=== PATIENT | female | born 1960 | race Caucasian/White ===

== ENCOUNTER → 2017-10-03 13:58 | Outpatient (CLI) | payer OTHER, SELFPAY ==
--- NOTE | 2017-10-03 13:59 | RAD_ITS ---
STUDY: X-RAY - LEFT HAND REASON FOR EXAM: Female, 56 years old. Rheumatoid arthritis. TECHNIQUE: 3 view(s) of the hand. COMPARISON: None. FINDINGS: Normal radiocarpal articulation. Normal distal radioulnar joint. Ulnar styloid avulsion fracture which is probably old. Normal visualized carpal bones. Normal carpal articulations Normal carpometacarpal articulation of the thumb. Normal second through fifth carpometacarpal joints. Normal metacarpi. Normal metacarpophalangeal joint of the thumb. Normal interphalangeal joint of the thumb. Normal proximal and distal phalanges of the thumb. Normal metacarpophalangeal joints of the second through fifth fingers. Normal proximal and distal interphalangeal joints of the second through fifth fingers. Normal phalanges of the second through fifth fingers. The soft tissue structures are unremarkable. No erosions. RAD/Hand Min 3 Views IMPRESSION: No findings to suggest an inflammatory arthritis. Electronically Signed: Diogenes Rankin MD at 5:03 EDT , Service support ,
--- NOTE | 2017-10-03 13:59 | RAD_ITS ---
STUDY: X-RAY - PELVIS REASON FOR EXAM: Female, 56 years old. Rheumatoid arthritis. TECHNIQUE: One view of the pelvis was obtained. COMPARISON: None. FINDINGS: There is a non-specific bowel gas pattern. Normal visualized soft tissue structures. Normal bilateral iliac wings, sacroiliac joints and visualized sacrum. Normal visualized bilateral superior and inferior pubic rami. Normal pubic symphysis. Normal ischial tuberosities. Normal visualized right femoral head. Normal right acetabulum. Normal right hip joint. No erosions. Normal visualized left femoral head. Normal left acetabulum. Normal left hip joint. No erosions. RAD/Pelvis 1 or 2 Views IMPRESSION: Normal x-ray examination of the pelvis. Electronically Signed: Diogenes Rankin MD at 7:51 EDT , Service support ,
--- NOTE | 2017-10-03 13:59 | RAD_ITS ---
STUDY: X-RAY - LEFT HAND REASON FOR EXAM: Female, 56 years old. Rheumatoid arthritis. TECHNIQUE: 3 view(s) of the hand. COMPARISON: None. FINDINGS: Normal radiocarpal articulation. Normal distal radioulnar joint. Normal visualized carpal bones. Normal carpal articulations Normal carpometacarpal articulation of the thumb. Normal second through fifth carpometacarpal joints. Normal metacarpi. Normal metacarpophalangeal joint of the thumb. Normal interphalangeal joint of the thumb. Normal proximal and distal phalanges of the thumb. Normal metacarpophalangeal joints of the second through fifth fingers. Normal proximal and distal interphalangeal joints of the second through fifth fingers. Normal phalanges of the second through fifth fingers. The soft tissue structures are unremarkable. No erosions. RAD/Hand Min 3 Views IMPRESSION: Normal x-ray examination of the hand. Electronically Signed: Diogenes Rankin MD at 7:25 EDT , Service support ,
[2017-10-03 15:33] LABS: Absolute Lymphocyte Count 1.58 X10^3/ul (0.83-4.51); Absolute Neutrophil Count 3.4 X10^3/uL (2.0-7.7); Basophil# 0.03 X10^3/uL; Basophil% 0.5 % (0-1); Eosinophil# 0.21 X10^3/uL; Eosinophils% 3.6 % (0-5); Hematocrit 39.1 % (37-47); Hemoglobin 13.2 g/dl (12.0-15.0); Lymphocyte # 1.58 X10^3/ul (4.0); Lymphocyte % 26.8 % (19-41); Mean Corp Hgb Conc 33.8 g/gl (32-36); Mean Corpuscular Hgb 31.4 pg (27.0-32.0); Mean Corpuscular Volume 92.9 fL (81-99); Mean Platelet Vol. 10.5 fl (6.2-12.0); Monocyte# 0.71 X10^3/uL; Monocyte% 12.1 % (0-10); Neutrophil # 3.35 X10^3/uL (2.7-7.7); Neutrophil % 56.8 % (47-70); Platelet Count 236 K/mm3 (150-450); RBC Distribution Width CV 12.7 % (11.6-14.6); RBC Distribution Width SD 42.4 fl (35.1-43.9); Red Blood Count 4.21 M/mm3 (4.2-5.4); White Blood Count 5.9 K/mm3 (4.4-11.0)
[2017-10-03 15:41] LABS: ALB/GLOB Ratio 1.1 RATIO (0.9-2.4); AST(SGOT) 20 U/L (15-37); Alanine Aminotransfer ALT/SGPT 26 U/L (13-56); Albumin, Serum 4.3 g/dL (3.2-5.0); Alkaline Phosphatase 118 U/L (45-117); Anion Gap 8 (5-15); BUN 15 mg/dL (7-18); BUN/Creat Ratio 18.9 RATIO (10-20); CRP 2.97 mg/L (0.0-3.0); Calcium,Total 9.2 mg/dL (8.5-10.1); Chloride 103 mmol/L (98-107); Creatinine, Serum 0.79 mg/dL (0.55-1.02); EST Glomerular Filtration Rate 80 mL/min (>60); Est Glom Filt Rate - Afr Amer 97 mL/min (>60); Glucose 83 mg/dL (74-106); POSITIVE COUNT NO; POSITIVE DIFFERENTIAL NO; POSITIVE MORPHOLOGY NO; Potassium 3.6 mmol/L (3.5-5.1); Protein, Total 8.3 g/dL (6.4-8.2); Sodium Level 139 mmol/L (136-145)
[2017-10-03 15:57] LABS: Erythrocyte Sedimentation Rate 13 mm/hr (0-30)
[2017-10-06 12:50] LABS: ANTINUCLEAR ANTIBODIES DIRECT Negative (Negative)
[2017-10-12 11:45] LABS: CCP IgG Antibodies 15 units (0-19); HEPATITIS B SURFACE AG Negative (Negative); HLA B27 Negative (.); Hep B Surface Antibodies Reactive (.); Hep C Antibodies <0.1 s/co ratio (0.0-0.9)
== END ==
PROVIDERS: Visit Provider Internal Medicine Rheumatology
DX: M05.79 Rheumatoid arthritis with rheumatoid factor of multiple sites without organ or systems involvement (principal); M15.9 Polyosteoarthritis, unspecified; E03.9 Hypothyroidism, unspecified
CPT/HCPCS: 36415; 72170; 73130; 80053; 81374; 85025; 85652; 86038; 86140; 86200; 86431; 86706; 86803; 87340

== ENCOUNTER → 2017-12-01 10:39 | Outpatient (CLI) | payer OTHER, SELFPAY ==
--- NOTE | 2017-12-01 10:49 | EKG12_ITS ---
Test Reason : PREOP Blood Pressure : / mmHG Vent. Rate : 048 BPM Atrial Rate : 048 BPM P-R Int : 168 ms QRS Dur : 074 ms QT Int : 450 ms P-R-T Axes : 041 026 043 degrees QTc Int : 402 ms Marked sinus bradycardia Abnormal ECG Confirmed by SUNITA FRANK, ELLEN ([id number]), mapping editor EBONY AYOUB ([id number] on 12/02/2017 1:49:42 PM Referred By: Ronen Baker Confirmed By:ELLEN DORSEY MD
== END ==
PROVIDERS: Visit Provider Physician Assistant
DX: Z01.810 Encounter for preprocedural cardiovascular examination (principal)
CPT/HCPCS: 93005

== ENCOUNTER → 2017-12-02 06:43 | Outpatient (CLI) | payer OTHER, SELFPAY ==
[2017-12-02 07:41] LABS: Hematocrit 39.9 % (37-47); Hemoglobin 13.2 g/dl (12.0-15.0); Mean Corp Hgb Conc 33.1 g/gl (32-36); Mean Corpuscular Hgb 30.8 pg (27.0-32.0); Mean Corpuscular Volume 93.2 fL (81-99); Mean Platelet Vol. 9.7 fl (6.2-12.0); Platelet Count 240 K/mm3 (150-450); RBC Distribution Width CV 13.2 % (11.6-14.6); RBC Distribution Width SD 43.8 fl (35.1-43.9); Red Blood Count 4.28 M/mm3 (4.2-5.4); White Blood Count 4.9 K/mm3 (4.4-11.0)
[2017-12-02 07:59] LABS: Hemoglobin A1c 5.6 % (4.2-6.3)
[2017-12-02 08:03] LABS: Anion Gap 5 (5-15); BUN 18 mg/dL (7-18); BUN/Creat Ratio 19.6 RATIO (10-20); Calcium,Total 8.9 mg/dL (8.5-10.1); Chloride 109 mmol/L (98-107); Cholesterol 208 mg/dL (200); Creatinine, Serum 0.92 mg/dL (0.55-1.02); EST Glomerular Filtration Rate 68 mL/min (>60); Est Glom Filt Rate - Afr Amer 82 mL/min (>60); Free T3 2.6 pg/mL (2.18-3.98); Glucose 96 mg/dL (74-106); High Density Lipoprotein 37 mg/dL; Potassium 4.2 mmol/L (3.5-5.1); Sodium Level 142 mmol/L (136-145); T4 Free Direct 0.76 ng/dL (0.76-1.46); Triglycerides 160 mg/dL; Very Low Density Lipoprotein 32 mg/dL (5-40)
[2017-12-02 08:06] LABS: Scan Indicated on CBC? Y/N NO
== END ==
PROVIDERS: Visit Provider Physician Assistant
DX: Z01.818 Encounter for other preprocedural examination (principal); Z01.810 Encounter for preprocedural cardiovascular examination
CPT/HCPCS: 36415; 80048; 80061; 83036; 84439; 84443; 84481; 85027

== ENCOUNTER → 2018-01-04 08:06 | Outpatient (CLI) | payer OTHER, SELFPAY ==
[2018-01-04 10:41] LABS: AST(SGOT) 16 U/L (15-37); Alanine Aminotransfer ALT/SGPT 25 U/L (13-56); Alkaline Phosphatase 111 U/L (45-117); Bilirubin, Direct 0.09 mg/dL (0.00-0.30)
== END ==
PROVIDERS: Visit Provider Internal Medicine Rheumatology
DX: M05.79 Rheumatoid arthritis with rheumatoid factor of multiple sites without organ or systems involvement (principal); M15.9 Polyosteoarthritis, unspecified; E03.9 Hypothyroidism, unspecified; Z79.899 Other long term (current) drug therapy
CPT/HCPCS: 36415; 80076

== ENCOUNTER → 2018-03-15 07:20 | Outpatient (CLI) | payer OTHER, SELFPAY ==
[2018-03-15 10:34] LABS: Absolute Lymphocyte Count 1.31 X10^3/ul (0.83-4.51); Absolute Neutrophil Count 2.6 X10^3/uL (2.0-7.7); Basophil# 0.03 X10^3/uL; Basophil% 0.7 % (0-1); Eosinophil# 0.26 X10^3/uL; Eosinophils% 5.8 % (0-5); Hematocrit 39.5 % (37-47); Hemoglobin 12.8 g/dl (12.0-15.0); Lymphocyte # 1.31 X10^3/ul (4.0); Lymphocyte % 29.4 % (19-41); Mean Corp Hgb Conc 32.4 g/gl (32-36); Mean Corpuscular Hgb 30.8 pg (27.0-32.0); Mean Corpuscular Volume 95.2 fL (81-99); Mean Platelet Vol. 10.3 fl (6.2-12.0); Monocyte# 0.22 X10^3/uL; Monocyte% 4.9 % (0-10); Neutrophil # 2.64 X10^3/uL (2.7-7.7); Neutrophil % 59.2 % (47-70); Platelet Count 230 K/mm3 (150-450); RBC Distribution Width CV 13.9 % (11.6-14.6); RBC Distribution Width SD 47.4 fl (35.1-43.9); Red Blood Count 4.15 M/mm3 (4.2-5.4); White Blood Count 4.5 K/mm3 (4.4-11.0)
[2018-03-15 10:37] LABS: POSITIVE COUNT NO; POSITIVE DIFFERENTIAL NO; POSITIVE MORPHOLOGY NO
[2018-03-15 10:46] LABS: ALB/GLOB Ratio 1.1 RATIO (0.9-2.4); AST(SGOT) 20 U/L (15-37); Alanine Aminotransfer ALT/SGPT 31 U/L (13-56); Alkaline Phosphatase 100 U/L (45-117); Anion Gap 9 (5-15); BUN 18 mg/dL (7-18); BUN/Creat Ratio 22.3 RATIO (10-20); Calcium,Total 8.7 mg/dL (8.5-10.1); Chloride 110 mmol/L (98-107); Creatinine, Serum 0.81 mg/dL (0.55-1.02); EST Glomerular Filtration Rate 78 mL/min (>60); Est Glom Filt Rate - Afr Amer 95 mL/min (>60); Globulin 3.8 g/dL (2.2-4.2); Glucose 100 mg/dL (74-106); Potassium 3.9 mmol/L (3.5-5.1); Protein, Total 7.8 g/dL (6.4-8.2); Sodium Level 142 mmol/L (136-145)
== END ==
PROVIDERS: Visit Provider Internal Medicine Rheumatology
DX: M05.79 Rheumatoid arthritis with rheumatoid factor of multiple sites without organ or systems involvement (principal); M15.9 Polyosteoarthritis, unspecified; E03.9 Hypothyroidism, unspecified
CPT/HCPCS: 36415; 80053; 85025

== ENCOUNTER → 2018-04-28 12:36 | Outpatient (CLI) | payer OTHER, SELFPAY ==
[2018-04-28 14:34] LABS: Thyroid Stim Hormone (TSH) 2.75 uIU/mL (0.358-3.74)
== END ==
PROVIDERS: Family Provider Family Medicine; PCP Family Medicine; Referring Provider Family Medicine; Visit Provider Family Medicine
DX: E03.9 Hypothyroidism, unspecified (principal)
CPT/HCPCS: 36415; 84443

== ENCOUNTER → 2018-06-15 11:14 | Outpatient (CLI) | payer OTHER, SELFPAY ==
[2018-06-15 14:06] LABS: Basophil# 0.02 X10^3/uL; Basophil% 0.4 % (0-1); Eosinophil# 0.07 X10^3/uL; Eosinophils% 1.4 % (0-5); Hematocrit 38.9 % (37-47); Hemoglobin 12.7 g/dl (12.0-15.0); Lymphocyte % 30.3 % (19-41); Mean Corp Hgb Conc 32.6 g/gl (32-36); Mean Corpuscular Hgb 31.4 pg (27.0-32.0); Mean Corpuscular Volume 96.3 fL (81-99); Mean Platelet Vol. 9.9 fl (6.2-12.0); Monocyte# 0.37 X10^3/uL; Monocyte% 7.5 % (0-10); Neutrophil # 2.99 X10^3/uL (2.7-7.7); Neutrophil % 60.4 % (47-70); Platelet Count 259 K/mm3 (150-450); RBC Distribution Width CV 14.6 % (11.6-14.6); RBC Distribution Width SD 50.4 fl (35.1-43.9); Red Blood Count 4.04 M/mm3 (4.2-5.4)
[2018-06-15 14:08] LABS: POSITIVE COUNT NO; POSITIVE DIFFERENTIAL NO; POSITIVE MORPHOLOGY NO
[2018-06-15 14:17] LABS: ALB/GLOB Ratio 1.1 RATIO (0.9-2.4); AST(SGOT) 22 U/L (15-37); Alanine Aminotransfer ALT/SGPT 34 U/L (13-56); Alkaline Phosphatase 93 U/L (45-117); Anion Gap 6 (5-15); BUN 20 mg/dL (7-18); BUN/Creat Ratio 24.3 RATIO (10-20); Calcium,Total 8.6 mg/dL (8.5-10.1); Chloride 107 mmol/L (98-107); Creatinine, Serum 0.82 mg/dL (0.55-1.02); EST Glomerular Filtration Rate 77 mL/min (>60); Est Glom Filt Rate - Afr Amer 93 mL/min (>60); Globulin 3.8 g/dL (2.2-4.2); Glucose 92 mg/dL (74-106); Protein, Total 7.8 g/dL (6.4-8.2); Sodium Level 139 mmol/L (136-145)
--- OUTSIDE RECORDS SUMMARY | 2018-08-10 14:00 | XMS RPT_ITS ---
:1960 Author Organization [place] Support Name Relationship Address Phone BUE Unavailable [address] [place] [address] IRENE, JOSE Unavailable [address] + [place] [address] BUE Unavailable [address] [place] [address] IRENE, JOSE Unavailable [address] + [place] [address] BUE Unavailable [address] [place] [address] IRENE, JOSE Unavailable [address] + [place] [address] BUE Unavailable [address] [place] [address] IRENE, JOSE Unavailable [address] + [place] [address] BUE Unavailable [address] [place] [address] IRENE, JOSE Unavailable [address] + [place] [address] BUE Unavailable [address] + [address] [place] [address] IRENE, JOSE Unavailable [address] + [place] [address] BUE Unavailable [address] [place] [address] IRENE, JOSE Unavailable [address] + [place] [address] BUE Unavailable [address] [place] [address] IRENE, JOSE Unavailable [address] + [place] [address] BUE Unavailable [address] + [address] [place] [address] JOSE BONILLA Unavailable [address] + [place] [address] Care Team Providers Name Role Phone Erasmo, Lavonne Attending Unavailable Vellisa, Lavonne Referring Unavailable Primay Care Physicia, No Primary Care Unavailable Ronen Baker Attending Unavailable Ronen Baker Referring Unavailable Primay Care Physicia, No Primary Care Unavailable Ronen Baker Attending Unavailable Ronen Baker Referring Unavailable Primay Care Physicia, No Primary Care Unavailable Lois Eubanks Consulting Unavailable Edmar Sin Attending Unavailable Ronen Baker Referring Unavailable Vellanki, Lavonne Attending Unavailable Primay Care Physicia, No Primary Care Unavailable Vellanki, Lavonne Attending Unavailable Primay Care Physicia, No Primary Care Unavailable Vellanki, Lavonne Referring Unavailable Miedel, Gretchen Attending Unavailable Miedel, Gretchen Primary Care Unavailable Vellanki, Lavonne Referring Unavailable Miedel, Gretchen Attending Unavailable Miedel, Gretchen Referring Unavailable Miedel, Gretchen Primary Care Unavailable Miedel, Gretchen Attending Unavailable Miedel, Gretchen Primary Care Unavailable PROBLEMS PROBLEMS DATE TYPE CONDITION / CODE ATTENDING STATUS SOURCE 06/15/2018 Unknown E03.9 - Miedel, Gretchen Active [place] Hypothyroidism, Community unspecified / Hospital E03.9(ICD-10) Repository 01/04/2018 Unknown M05.79 - Rheumatoid Erasmo, Active [place] arthritis with [facility] rheumatoid factor of Hospital multiple sites without Repository organ or systems involvement / M05.79(ICD-10) 01/04/2018 Unknown Z79.899 - Other long [place]el[place]i, Active [place] term (current) drug [facility] therapy / Hospital Z79.899(ICD-10) Repository 01/04/2018 Unknown M15.9 - Vellanki, Active [place] Polyosteoarthritis, [facility] unspecified / Hospital M15.9(ICD-10) Repository 12/02/2017 Unknown Z01.810 - Encounter Ronen Baker Active [place] for preprocedural [facility] Hospital examination / Repository Z01.810(ICD-10) 12/02/2017 Unknown Z01.818 - Encounter Ronen Baker Active [place] for other [facility] preprocedural Hospital examination / Repository Z01.818(ICD-10) 01/03/2018 Unknown R94.31 - Abnormal Edmar Sin Active [place] electrocardiogram Community [ECG] [EKG] / Hospital R94.31(ICD-10) Repository PROCEDURES PROCEDURES No Procedure Records FoundRESULTS RESULTS CBC W/DIFF, AUTOMATED Collected: 06/15/2018 Status: F Source: [place] 11:34 AM [facility]END[facility] TO [facility] REPOSITORY TYPE CODE TESTS RESULT OUT OF RANGE REFERENCE UNITS LAB L100.1000 4.4-11.0 K/mm3 Normal WBC 5.0 LAB L100.1200 4.2-5.4 M/mm3 Low RBC 4.04 LAB L100.1300 12.0-15.0 g/dl Normal HGB 12.7 LAB L100.1400 37-47 % Normal HCT 38.9 LAB L100.1500 81-99 fL Normal MCV 96.3 LAB L100.1600 27.0-32.0 pg Normal MCH 31.4 LAB L100.1700 32-36 g/gl Normal MCHC 32.6 LAB L100.1810 11.6-14.6 % Normal RDW CV 14.6 LAB L100.1820 35.1-43.9 fl High RDW SD 50.4 LAB L100.1900 150-450 K/mm3 Normal PLT 259 LAB L100.2000 6.2-12.0 fl Normal MPV 9.9 LAB L100.2100 47-70 % Normal NEUT% 60.4 LAB L100.2200 19-41 % Normal LY% 30.3 LAB L100.2300 0-10 % Normal MONO% 7.5 LAB L100.2400 0-5 % Normal EO% 1.4 LAB L100.2500 0-1 % Normal BASO% 0.4 LAB L100.2550 0.0-0.9 % Normal IM GRAN % 0.000 Result Comment: IG% - Immature Granulocytes (promyelocytes, myelocytes and metamyelocytes) > 1% indicates that a LEFT SHIFT is Present. LAB L100.2620 2.0-7.7 X10 3/uL Normal Absolute Neut 3.0 LAB L100.2720 0.83-4.51 X10 3/ul Normal Absolute Lymph 1.50 Performed By: #### L100.0100 #### [facility] [place], [address] COMPREHENSIVE METABOLIC Collected: 06/15/2018 Status: F Source: [place] NEUMANN 11:34 AM [facility] REPOSITORY TYPE CODE TESTS RESULT OUT OF RANGE REFERENCE UNITS LAB L501.0100 74-106 mg/dL Normal GLU 92 Result Comment: Please note revised GLUCOSE reference range effective 2017. LAB L501.1000 7-18 mg/dL High BUN 20 LAB L501.1100 0.55-1.02 mg/dL Normal CREAT,SERUM 0.82 Result Comment: The validity of the calculated GFR AND GFRAA in patients over 70 years has not been determined. Clinical correlation is essential. LAB L501.1110 >60 mL/min Normal EST GFR 77 Result Comment: Non- GFR Calc LAB L501.1115 >60 mL/min Normal EST GFR - AA 93 Result Comment: GFR Calc LAB L501.1300 10-20 RATIO High BUN/CRE 24.3 LAB L501.1500 6.4-8.2 g/dL T Normal PROT 7.8 LAB L501.1800 3.2-5.0 g/dL Normal ALB 4.0 LAB L501.1950 2.2-4.2 g/dL Normal GLOB 3.8 LAB L501.2000 0.9-2.4 RATIO Normal A/G 1.1 LAB L501.2200 8.5-10.1 mg/dL CA Normal 8.6 LAB L501.4100 15-37 U/L Normal AST 22 LAB L501.4305 45-117 U/L Normal ALK P 93 LAB L501.4405 13-56 U/L Normal ALT 34 LAB L501.4600 0.20-1.00 mg/dL T Normal BILI 0.30 LAB L501.5300 136-145 mmol/L NA Normal 139 LAB L501.5600 3.5-5.1 mmol/L K Normal 4.0 LAB L501.5900 98-107 mmol/L CL Normal 107 LAB L501.6100 21.0-32.0 mmol/L Normal CO2 26.0 LAB L501.6200 5-15 Normal GAP 6 Performed By: #### L500.4050 #### [facility] [address] [place], [address] THYROID STIM HORMONE Collected: 04/28/2018 Status: F Source: [place] (TSH) 12:49 PM [facility] REPOSITORY TYPE CODE TESTS RESULT OUT OF RANGE REFERENCE UNITS LAB L501.9520 0.358-3.74 uIU/mL Normal TSH 2.75 Performed By: #### L501.9520 #### [facility] [address], [address] CBC W/DIFF, AUTOMATED Collected: 03/15/2018 Status: F Source: [place] 7:24 AM [facility] REPOSITORY Order Comment: Order Date: 08/16/17 Order Info: 0184-1 - CBCD TYPE CODE TESTS RESULT OUT OF RANGE REFERENCE UNITS LAB L100.1000 4.4-11.0 K/mm3 Normal WBC 4.5 LAB L100.1200 4.2-5.4 M/mm3 Low RBC 4.15 LAB L100.1300 12.0-15.0 g/dl Normal HGB 12.8 LAB L100.1400 37-47 % Normal HCT 39.5 LAB L100.1500 81-99 fL Normal MCV 95.2 LAB L100.1600 27.0-32.0 pg Normal MCH 30.8 LAB L100.1700 32-36 g/gl Normal MCHC 32.4 LAB L100.1810 11.6-14.6 % Normal RDW CV 13.9 LAB L100.1820 35.1-43.9 fl High RDW SD 47.4 LAB L100.1900 150-450 K/mm3 Normal PLT 230 LAB L100.2000 6.2-12.0 fl Normal MPV 10.3 LAB L100.2100 47-70 % Normal NEUT% 59.2 LAB L100.2200 19-41 % Normal LY% 29.4 LAB L100.2300 0-10 % Normal MONO% 4.9 LAB L100.2400 0-5 % High EO% 5.8 LAB L100.2500 0-1 % Normal BASO% 0.7 LAB L100.2550 0.0-0.9 % Normal IM GRAN % 0.000 Result Comment: IG% - Immature Granulocytes (promyelocytes, myelocytes and metamyelocytes) > 1% indicates that a LEFT SHIFT is Present. LAB L100.2620 2.0-7.7 X10 3/uL Normal Absolute Neut 2.6 LAB L100.2720 0.83-4.51 X10 3/ul Normal Absolute Lymph 1.31 Performed By: #### L100.0100, L500.4050 #### [facility] [address] [place], [address] COMPREHENSIVE METABOLIC Collected: 03/15/2018 Status: F Source: [place] [facility] 7:24 AM [facility] REPOSITORY Order Comment: Order Date: 08/16/17 Order Info: 0786-1 - CMP TYPE CODE TESTS RESULT OUT OF RANGE REFERENCE UNITS LAB L501.0100 74-106 mg/dL Normal GLU 100 Result Comment: Fasting Glucose result from 100 to 125 mg/dL suggests IMPAIRED HOMEOSTASIS per A.D.A. criteria. Please note revised GLUCOSE reference range effective 2017. LAB L501.1000 7-18 mg/dL Normal BUN 18 LAB L501.1100 0.55-1.02 mg/dL Normal CREAT,SERUM 0.81 Result Comment: The validity of the calculated GFR AND GFRAA in patients over 70 years has not been determined. Clinical correlation is essential. LAB L501.1110 >60 mL/min Normal EST GFR 78 Result Comment: Non- GFR Calc LAB L501.1115 >60 mL/min Normal EST GFR - AA 95 Result Comment: GFR Calc LAB L501.1300 10-20 RATIO High BUN/CRE 22.3 LAB L501.1500 6.4-8.2 g/dL T Normal PROT 7.8 LAB L501.1800 3.2-5.0 g/dL Normal ALB 4.0 LAB L501.1950 2.2-4.2 g/dL Normal GLOB 3.8 LAB L501.2000 0.9-2.4 RATIO Normal A/G 1.1 LAB L501.2200 8.5-10.1 mg/dL CA Normal 8.7 LAB L501.4100 15-37 U/L Normal AST 20 LAB L501.4305 45-117 U/L Normal ALK P 100 LAB L501.4405 13-56 U/L Normal ALT 31 LAB L501.4600 0.20-1.00 mg/dL T Normal BILI 0.40 LAB L501.5300 136-145 mmol/L NA Normal 142 LAB L501.5600 3.5-5.1 mmol/L K Normal 3.9 LAB L501.5900 98-107 mmol/L High CL 110 LAB L501.6100 21.0-32.0 mmol/L Normal CO2 23.0 LAB L501.6200 5-15 Normal GAP 9 Performed By: #### L100.0100, L500.4050 #### [facility] [address] [place], [place], [address] LIVER PROFILE Collected: 01/04/2018 Status: F Source: [place] 8:12 AM [facility] REPOSITORY TYPE CODE TESTS RESULT OUT OF RANGE REFERENCE UNITS LAB L501.1500 6.4-8.2 g/dL Normal T PROT 8.0 LAB L501.1800 3.2-5.0 g/dL Normal ALB 4.0 LAB L501.1950 2.2-4.2 g/dL Normal GLOB 4.0 LAB L501.4100 15-37 U/L Normal AST 16 LAB L501.4305 45-117 U/L Normal ALK P 111 LAB L501.4405 13-56 U/L Normal ALT 25 LAB L501.4600 0.20-1.00 mg/dL Normal T BILI 0.40 LAB L501.4700 0.00-0.30 mg/dL Normal D BILI 0.09 Performed By: #### L500.3400 #### [facility] [address] [place], [address] 12 LEAD ELECTROCARDIOGRAM Observed: 12/02/2017 Status: F Source: [place] 1:50 PM [facility] REPOSITORY [facility] Cardiovascular Services [address] [place] [address] 12 Lead EKG 12/01/17 1105 MR#: [id number] Acct: [id number] Name: KARINA BONILLA Rep #: [id number] : 1960 57 From: Edmar Sin MD Attending Dr: Ronen Mathews Status: REG CLI Ordering Dr: Ronen Baker PA-C Date: 12/01/17 Location: [facility] Sex: F C Admitted: Test Reason : PREOP Blood Pressure : / mmHG Vent. Rate : 048 BPM Atrial Rate : 048 BPM P-R Int : 168 ms QRS Dur : 074 ms QT Int : 450 ms P-R-T Axes : 041 026 043 degrees QTc Int : 402 ms Marked sinus bradycardia Abnormal ECG Confirmed by EDMAR SIN MD ([id number]), editor managing newspaper EBONY AYOUB ([id number]) on 12/02/2017 1:49:42 PM Referred By: Ronen Baker Confirmed By:EDMAR SIN MD 12/02/17 1349 Date Edmar Sin MD CC: No Primary Care Physician; Ronen MUSTAFA Signed HEMOGLOBIN A1C Collected: 12/02/2017 Status: F Source: [place] 6:46 AM [facility] REPOSITORY Order Comment: CBC AND BMP FOR DR BAKER, REST FOR DR EUBANKS TYPE CODE TESTS RESULT OUT OF RANGE REFERENCE UNITS LAB L501.9985 4.2-6.3 % Normal HGB A1C 5.6 Performed By: #### L501.9985 #### [facility] [place], [address] BASIC METABOLIC Collected: 12/02/2017 Status: F Source: [place] PROFILE (BMP) 6:46 AM [facility] REPOSITORY Order Comment: CBC AND BMP FOR DR BAKER, REST FOR DR EUBANKS TYPE CODE TESTS RESULT OUT OF RANGE REFERENCE UNITS LAB L501.0100 74-106 mg/dL Normal GLU 96 Result Comment: Please note revised GLUCOSE reference range effective 2017. LAB L501.1000 7-18 mg/dL Normal BUN 18 LAB L501.1100 0.55-1.02 mg/dL Normal CREAT,SERUM 0.92 Result Comment: The validity of the calculated GFR AND GFRAA in patients over 70 years has not been determined. Clinical correlation is essential. LAB L501.1110 >60 mL/min Normal EST GFR 68 Result Comment: Non- GFR Calc LAB L501.1115 >60 mL/min Normal EST GFR - AA 82 Result Comment: GFR Calc LAB L501.1300 10-20 RATIO Normal BUN/CRE 19.6 LAB L501.2200 8.5-10.1 mg/dL CA Normal 8.9 LAB L501.5300 136-145 mmol/L NA Normal 142 LAB L501.5600 3.5-5.1 mmol/L K Normal 4.2 LAB L501.5900 98-107 mmol/L High CL 109 LAB L501.6100 21.0-32.0 mmol/L Normal CO2 28.0 LAB L501.6200 5-15 Normal GAP 5 Performed By: #### L500.2500, L500.4100, L501.36240, L501.9520, L506.0400 #### [facility] [address] [facility] [place], [address] LIPID PROFILE Collected: 12/02/2017 Status: F Source: [place] 6:46 AM [facility] REPOSITORY Order Comment: CBC AND BMP FOR DR BAKER, REST FOR DR EUBANKS TYPE CODE TESTS RESULT OUT OF RANGE REFERENCE UNITS LAB L501.4900 200 mg/dL High CHOL 208 Result Comment: <200 mg/dL Desirable 200-240 mg/dL Borderline >240 mg/dL High Risk LAB L501.5000 mg/dL Normal TRIG 160 Result Comment: The drugs N-Acetylcysteine and Metamizole may falsely depress this assay. Serum Triglycerides Reference Interval Normal <150 mg/dL Borderline high 150 - 199 mg/dL High 200 - 499 mg/dL Very High > or = 500 mg/dL LAB L501.6400 mg/dL Low HDL 37 Result Comment: The drugs N-Acetylcysteine and Metamizole may falsely depress this assay. Reference Range HDL <40 mg/dL Low HDL Cholesterol HDL >or= 60 mg/dL High HDL Cholesterol LAB L501.6500 0-130 mg/dL High LDL 139 LAB L501.6600 5-40 mg/dL Normal VLDL 32 Performed By: #### L500.2500, L500.4100, L501.44373, L501.9520, L506.0400 #### [facility] [address] [facility] [place], [address] FREE T3 Collected: 12/02/2017 Status: F Source: [place] 6:46 AM [facility] REPOSITORY Order Comment: CBC AND BMP FOR DR BAKER, REST FOR DR EUBANKS TYPE SAMEER TESTS RESULT OUT OF RANGE REFERENCE UNITS LAB L501.60077 2.18-3.98 pg/mL Normal FREE T3 2.6 Performed By: #### L500.2500, L500.4100, L501.39643, L501.9520, L506.0400 #### [facility] [address] [place], [address] THYROID STIM HORMONE Collected: 12/02/2017 Status: F Source: [place] (TSH) 6:46 AM [facility] REPOSITORY Order Comment: CBC AND BMP FOR DR BAKER, REST FOR DR EUBANKS TYPE SAMEER TESTS RESULT OUT OF RANGE REFERENCE UNITS LAB L501.9520 0.358-3.74 uIU/mL High TSH 7.50 Performed By: #### L500.2500, L500.4100, L501.91802, L501.9520, L506.0400 #### [facility] [address] [place], [address] T4 FREE DIRECT Collected: 12/02/2017 Status: F Source: [place] 6:46 AM [facility] REPOSITORY Order Comment: CBC AND BMP FOR DR BAKER, REST FOR DR EUBANKS TYPE SAMEER TESTS RESULT OUT OF RANGE REFERENCE UNITS LAB L506.0400 0.76-1.46 ng/dL Normal T4 FREE 0.76 DIRECT Performed By: #### L500.2500, L500.4100, L501.49786, L501.9520, L506.0400 #### [facility] [address] [facility] [place], [address] CBC-COMPLETE BLOOD CNT Collected: 12/02/2017 Status: F Source: [place] NO DIFF 6:46 AM [facility] REPOSITORY Order Comment: CBC AND BMP FOR DR BAKER, REST FOR DR EUBANKS TYPE SAMEER TESTS RESULT OUT OF RANGE REFERENCE UNITS LAB L100.1000 4.4-11.0 K/mm3 Normal WBC 4.9 LAB L100.1200 4.2-5.4 M/mm3 Normal RBC 4.28 LAB L100.1300 12.0-15.0 g/dl Normal HGB 13.2 LAB L100.1400 37-47 % Normal HCT 39.9 LAB L100.1500 81-99 fL Normal MCV 93.2 LAB L100.1600 27.0-32.0 pg Normal MCH 30.8 LAB L100.1700 32-36 g/gl Normal MCHC 33.1 LAB L100.1810 11.6-14.6 % Normal RDW CV 13.2 LAB L100.1820 35.1-43.9 fl Normal RDW SD 43.8 LAB L100.1900 150-450 K/mm3 Normal PLT 240 LAB L100.2000 6.2-12.0 fl Normal MPV 9.7 Performed By: #### L100.0500 #### [facility] [address] [facility] [place], [address] HAND MIN 3 VIEWS Observed: 10/03/2017 Status: F Source: [place] 2:00 PM [facility] REPOSITORY [facility] Imaging Services [address] [place] [address] Hand Min 3 Views MR#: [id number] Acct: [id number] Name: KARINA BONILLA Rep #: [id number] : 1960 F 56 From: Diogenes Rankin PCP: Care Physician, No Primary Status: REG CLI Study: Hand Min 3 Views Date of Exam: 10/03/17 Exam# [id number] Ordering Dr: Lavonne Zimmerman MD STUDY: X-RAY - LEFT HAND REASON FOR EXAM: Female, 56 years old. Rheumatoid arthritis. TECHNIQUE: 3 view(s) of the hand. COMPARISON: None. FINDINGS: Normal radiocarpal articulation. Normal distal radioulnar joint. Ulnar styloid avulsion fracture which is probably old. Normal visualized carpal bones. Normal carpal articulations Normal carpometacarpal articulation of the thumb. Normal second through fifth carpometacarpal joints. Normal metacarpi. Normal metacarpophalangeal joint of the thumb. Normal interphalangeal joint of the thumb. Normal proximal and distal phalanges of the thumb. Normal metacarpophalangeal joints of the second through fifth fingers. Normal proximal and distal interphalangeal joints of the second through fifth fingers. Normal phalanges of the second through fifth fingers. The soft tissue structures are unremarkable. No erosions. RAD/Hand Min 3 Views IMPRESSION: No findings to suggest an inflammatory arthritis. Electronically Signed: Diogenes Rankin MD at 5:03 EDT , Service support , CC: No Primary Care Physician; Lavonne Zimmerman MD Swimming Coach Or Instructor: Signed HAND MIN 3 VIEWS Observed: 10/03/2017 Status: F Source: [place] 2:00 PM [facility] REPOSITORY [facility] Imaging Services [address] [place] [address] Hand Min 3 Views MR#: [id number] Acct: [id number] Name: KARINA BONILLA Rep #: [id number] : 1960 F 56 From: Diogenes Rankin PCP: Care Physician, No Primary Status: REG CLI Study: Hand Min 3 Views Date of Exam: 10/03/17 Exam# [id number] Ordering Dr: Lavonne Zimmerman MD STUDY: X-RAY - LEFT HAND REASON FOR EXAM: Female, 56 years old. Rheumatoid arthritis. TECHNIQUE: 3 view(s) of the hand. COMPARISON: None. FINDINGS: Normal radiocarpal articulation. Normal distal radioulnar joint. Normal visualized carpal bones. Normal carpal articulations Normal carpometacarpal articulation of the thumb. Normal second through fifth carpometacarpal joints. Normal metacarpi. Normal metacarpophalangeal joint of the thumb. Normal interphalangeal joint of the thumb. Normal proximal and distal phalanges of the thumb. Normal metacarpophalangeal joints of the second through fifth fingers. Normal proximal and distal interphalangeal joints of the second through fifth fingers. Normal phalanges of the second through fifth fingers. The soft tissue structures are unremarkable. No erosions. RAD/Hand Min 3 Views IMPRESSION: Normal x-ray examination of the hand. Electronically Signed: Diogenes Rankin MD at 7:25 EDT , Service support , CC: No Primary Care Physician; Lavonne Zimmerman MD Swimming Coach Or Instructor: Signed PELVIS 1 OR 2 VIEWS Observed: 10/03/2017 Status: F Source: [place] 2:00 PM [facility] REPOSITORY [facility] Imaging Services [address] [place] [address] Pelvis 1 or 2 Views MR#: [id number] Acct: [id number] Name: KARINA BONILLA Rep #: [id number] : 1960 F 56 From: Diogenes Rankin PCP: Care Physician, No Primary Status: REG CLI Study: Pelvis 1 or 2 Views Date of Exam: 10/03/17 Exam# [id number] Ordering Dr: Lavonne Zimmerman MD STUDY: X-RAY - PELVIS REASON FOR EXAM: Female, 56 years old. Rheumatoid arthritis. TECHNIQUE: One view of the pelvis was obtained. COMPARISON: None. FINDINGS: There is a non-specific bowel gas pattern. Normal visualized soft tissue structures. Normal bilateral iliac wings, sacroiliac joints and visualized sacrum. Normal visualized bilateral superior and inferior pubic rami. Normal pubic symphysis. Normal ischial tuberosities. Normal visualized right femoral head. Normal right acetabulum. Normal right hip joint. No erosions. Normal visualized left femoral head. Normal left acetabulum. Normal left hip joint. No erosions. RAD/Pelvis 1 or 2 Views IMPRESSION: Normal x-ray examination of the pelvis. Electronically Signed: Diogenes Rankin MD at 7:51 EDT , Service support , CC: No Primary Care Physician; Lavonne Zimmerman MD Swimming Coach Or Instructor: Signed COMPREHENSIVE METABOLIC Collected: 10/03/2017 Status: F Source: [place] 1:57 PM [facility] REPOSITORY TYPE CODE TESTS RESULT OUT OF RANGE REFERENCE UNITS LAB L501.0100 74-106 mg/dL Normal GLU 83 Result Comment: Please note revised GLUCOSE reference range effective 2017. LAB L501.1000 7-18 mg/dL Normal BUN 15 LAB L501.1100 0.55-1.02 mg/dL Normal CREAT,SERUM 0.79 Result Comment: The validity of the calculated GFR AND GFRAA in patients over 70 years has not been determined. Clinical correlation is essential. LAB L501.1110 >60 mL/min Normal EST GFR 80 Result Comment: Non- GFR Calc LAB L501.1115 >60 mL/min Normal EST GFR - AA 97 Result Comment: GFR Calc LAB L501.1300 10-20 RATIO Normal BUN/CRE 18.9 LAB L501.1500 6.4-8.2 g/dL High T PROT 8.3 LAB L501.1800 3.2-5.0 g/dL Normal ALB 4.3 LAB L501.1950 2.2-4.2 g/dL Normal GLOB 4.0 LAB L501.2000 0.9-2.4 RATIO Normal A/G 1.1 LAB L501.2200 8.5-10.1 mg/dL CA Normal 9.2 LAB L501.4100 15-37 U/L Normal AST 20 LAB L501.4305 45-117 U/L High ALK P 118 LAB L501.4405 13-56 U/L Normal ALT 26 Result Comment: Please note revised ALT reference range effective 2017. LAB L501.4600 0.20-1.00 mg/dL Normal T BILI 0.30 LAB L501.5300 136-145 mmol/L Normal NA 139 LAB L501.5600 3.5-5.1 mmol/L Normal K 3.6 LAB L501.5900 98-107 mmol/L Normal CL 103 LAB L501.6100 21.0-32.0 mmol/L Normal CO2 28.0 LAB L501.6200 5-15 Normal GAP 8 Performed By: #### L500.4050, L501.6710, L505.7010 #### [facility] [address] [place], [address] CRP Collected: 10/03/2017 Status: F Source: [place] 1:57 PM [facility] REPOSITORY TYPE CODE TESTS RESULT OUT OF RANGE REFERENCE UNITS LAB L501.6710 0.0-3.0 mg/L Normal 2.97 C-REACTIVE PROT Result Comment: C-Reactive Protein (CRP) provides useful information for the diagnosis, therapy and monitoring of inflammatory processes and associated diseases. For the evaluation of Relative Risk for Cardiovascular Disease, a High Sensitivity CRP (HSCRP) should be ordered. Performed By: #### L500.4050, L501.6710, L505.7010 #### [facility] [address] [facility] [place], [place], [address] RHEUMATOID FACTOR Collected: 10/03/2017 Status: F Source: [place] 1:57 PM [facility] REPOSITORY TYPE CODE TESTS RESULT OUT OF REFERENCE UNITS RANGE LAB L505.7010 <15 IU/mL High RHEUMATOID FAC 16.0 Performed By: #### L500.4050, L501.6710, L505.7010 #### [facility] [address] [facility] [address] [place], [place], [address] CBC W/DIFF, AUTOMATED Collected: 10/03/2017 Status: F Source: [place] 1:57 PM [facility] REPOSITORY TYPE CODE TESTS RESULT OUT OF RANGE REFERENCE UNITS LAB L100.1000 4.4-11.0 K/mm3 Normal WBC 5.9 LAB L100.1200 4.2-5.4 M/mm3 Normal RBC 4.21 LAB L100.1300 12.0-15.0 g/dl Normal HGB 13.2 LAB L100.1400 37-47 % Normal HCT 39.1 LAB L100.1500 81-99 fL Normal MCV 92.9 LAB L100.1600 27.0-32.0 pg Normal MCH 31.4 LAB L100.1700 32-36 g/gl Normal MCHC 33.8 LAB L100.1810 11.6-14.6 % Normal RDW CV 12.7 LAB L100.1820 35.1-43.9 fl Normal RDW SD 42.4 LAB L100.1900 150-450 K/mm3 Normal PLT 236 LAB L100.2000 6.2-12.0 fl Normal MPV 10.5 LAB L100.2100 47-70 % Normal NEUT% 56.8 LAB L100.2200 19-41 % Normal LY% 26.8 LAB L100.2300 0-10 % High MONO% 12.1 LAB L100.2400 0-5 % Normal EO% 3.6 LAB L100.2500 0-1 % Normal BASO% 0.5 LAB L100.2550 0.0-0.9 % Normal IM GRAN % 0.200 Result Comment: IG% - Immature Granulocytes (promyelocytes, myelocytes and metamyelocytes) > 1% indicates that a LEFT SHIFT is Present. LAB L100.2620 2.0-7.7 X10 3/uL Normal Absolute Neut 3.4 LAB L100.2720 0.83-4.51 X10 3/ul Normal Absolute Lymph 1.58 Performed By: #### L100.0100, L101.9900 #### [facility] [address] [facility] [id number] ERYTHROCYTE SED RATE Collected: 10/03/2017 Status: F Source: [place] 1:57 PM [facility] REPOSITORY TYPE CODE TESTS RESULT OUT OF RANGE REFERENCE UNITS LAB L102.0000 0-30 mm/hr Normal SED RATE 13 Performed By: #### L100.0100, L101.9900 #### [facility] [address] [facility] [place], [address] ANTINUCLEAR ANTIBODIES Collected: 10/03/2017 Status: F Source: [place] DIRECT 1:57 PM [facility] REPOSITORY TYPE CODE TESTS RESULT OUT OF RANGE REFERENCE UNITS LAB L3100.5475 Negative Normal Negative TOM-DIRECT Result Comment: Performed at: - [facility] [address] [place], [place] [id number] Fountain Worker: Dewey Abdi PhD, Phone: [phone] Performed By: #### L3100.5475 #### [facility] (refer to report for specific site) refer to report for address and phone number HEPATITIS B SURFACE Collected: 10/03/2017 Status: F Source: [place] 1:57 PM [facility] REPOSITORY TYPE CODE TESTS RESULT OUT OF RANGE REFERENCE UNITS LAB L3100.0400 Negative Normal HB Negative SURF AG Result Comment: Performed at: - [facility] [id number] Fountain Worker: Dewey Abdi PhD, Phone: [phone] Performed at: [facility] [id number] Fountain Worker: Bharat Walter PhD, Phone: [phone] Performed at: [facility] Lab[address] [id number] Fountain Worker: Tristian Cotton MD, Phone: [phone] Performed By: #### L3100.0390, L3100.0528, L3100.0625, L3410.1400, L4600.0100 #### [facility] (refer to report for specific site) refer to report for address and phone number HEP B SURFACE Collected: 10/03/2017 Status: F Source: [place] ANTIBODIES 1:57 PM [facility] REPOSITORY TYPE CODE TESTS RESULT OUT OF RANGE REFERENCE UNITS LAB L3100.0528 . Normal Hep B Reactive Bairon AB Result Comment: Non Reactive: Inconsistent with immunity, less than 10 mIU/mL Reactive: Consistent with immunity, greater than 9.9 mIU/mL Performed By: #### L3100.0390, L3100.0528, L3100.0625, L3410.1400, L4600.0100 #### [facility] (refer to report for specific site) refer to report for address and phone number HEPATITIS C ANTIBODIES Collected: 10/03/2017 Status: F Source: [place] 1:57 PM [facility] REPOSITORY TYPE CODE TESTS RESULT OUT OF RANGE REFERENCE UNITS LAB L3100.0650 0.0-0.9 s/co ratio Normal HEP C AB <0.1 Result Comment: Negative: < 0.8 Indeterminate: 0.8 - 0.9 Positive: > 0.9 The CDC recommends that a positive HCV antibody result be followed up with a HCV Nucleic Acid Amplification test (543772). Performed By: #### L3100.0390, L3100.0528, L3100.0625, L3410.1400, L4600.0100 #### [facility] (refer to report for specific site) refer to report for address and phone number HLA B27 Collected: 10/03/2017 Status: F Source: [place] 1:57 PM [facility] REPOSITORY TYPE CODE TESTS RESULT OUT OF RANGE REFERENCE UNITS LAB L3410.1500 . Normal HLA Negative B27 Result Comment: HLA-B*27 Negative B27 allele interpretation for all loci based on IMGT/HLA database version 3.27 This test was developed and its performance characteristics determined by [facility]. It has not been cleared or approved by the Food and Drug Administration. [facility] CLIA ID Number [id number] This test was performed using PCR (Polymerase Chain Reaction)/SSOP (Sequence Specific Oligonucleotide Probes) technique. SBT (Sequence Based Typing) and/or SSP (Sequence Specific Primers) may be used as supplemental methods when necessary. Please contact [facility] Customer Service at if you have any questions. Director of [facility] Laboratory Dr Bharat Walter, PhD Performed By: #### L3100.0390, L3100.0528, L3100.0625, L3410.1400, L4600.0100 #### [facility] (refer to report for specific site) refer to report for address and phone number CCP IGG ANTIBODIES Collected: 10/03/2017 Status: F Source: [place] 1:57 PM [facility] REPOSITORY TYPE CODE TESTS RESULT OUT OF RANGE REFERENCE UNITS LAB L4600.0100 0-19 units Normal ANTI-CCP 15 [id number] Result Comment: Negative <20 Weak positive 20 - 39 Moderate positive 40 - 59 Strong positive >59 Performed By: #### L3100.0390, L3100.0528, L3100.0625, L3410.1400, L4600.0100 #### [facility] (refer to report for specific site) refer to report for address and phone number ALLERGIES ALLERGIES No Allergies Records FoundENCOUNTERS ENCOUNTERS ADMIT/DISCHARGE ACCOUNT ADMITTING ENCOUNTER LOCATION SOURCE NUMBER CLASS 06/17/2018 [id number] Ambulatory [place] 1 [facility] ing:LAB.FUTUR Repository E 06/15/2018 [id number] Ambulatory [place] 6 [facility] ing:LAB.FUTUR Repository E 04/28/2018 [id number] Ambulatory [place]ira 6 [facility] ing:MTLAB Repository 03/15/2018 [id number] Ambulatory [place]ira 5 [facility] ing:LAB.FUTUR Repository E 01/04/2018 [id number] Ambulatory [place]ira 0 [facility] ing:MTLAB Repository 12/02/2017 [id number] Ambulatory [place] 5 [facility] ing:LAB Repository 12/01/2017 [id number] Ambulatory [place]ira 5 [facility] ing:CVS Repository 12/01/2017 [id number] Ambulatory BMSBuilding:W [place] 9 [facility] Repository 10/03/2017 [id number] Ambulatory [place] 6 [facility] ing:MTLAB Repository PAYERS PAYERS ENCOUNTER GUARANTOR PAYER SUBSCRIBER SOURCE 06/17/2018 KARINA RODRÍGUEZ Primary Insurance:UMR ANGIE Silva [facility] [id number] [facility]: [address] Number: [id number] [place] [address]Hxb: [id number] Repository Date:5632-77-59QN BOX () [address] [place] [phone]: 06/17/2018 Secondary NOT GIVENUNK [place] Insurance:SELF PAY [facility] Number: Effective Repository Date:2018-06-15 06/15/2018 KARINA RODRÍGUEZ Primary [facility] [id number] [facility]: [address] Number: [id number] [place] [address]Req: [id number] Repository Date:5556-50-56YV BOX () [address] [place] [id number]: 06/15/2018 Secondary NOT GIVENUNK [place] Insurance:SELF PAY [facility] Number: Effective Repository Date:2018-04-27 04/28/2018 Karina Rodríguez Primary Insurance:UMR ANGIE E [place] TR ERNESTO [id number] EDUARDOB: [address] Number: [id number] [facility] , [place] [address]Gli: [id number] Repository Date:5143-02-89YA BOX () [address] [place] [id number]: 04/28/2018 Secondary NOT GIVENUNK [place] Insurance:SELF PAY [facility] Number: Effective Repository Date:2018-04-28 03/15/2018 Karina Rodríguez Primary Insurance:UMR ANGIE E [place] TR [place] [id number] [facility]: [address] Number: [id number] [facility] , [place] [id number]: [id number] Repository Date:8835-91-77TX BOX () [address] [place] [id number]: 03/15/2018 Secondary NOT GIVENUNK Shira Insurance:SELF PAY [facility] Number: Effective Repository Date:2018-01-05 01/04/2018 Karina Rodríguez Primary Insurance:UMR ANGIE Silva [place] [id number] [facility]: [address] Number: [id number] Hospital , [place] [id number]: [id number] Repository Date:9899-64-61MZ BOX () [address] [place] [id number]: 01/04/2018 Secondary NOT GIVENUNK Shira Insurance:SELF PAY [facility] Number: Effective Repository Date:2018-01-04 12/02/2017 Karina Rodríguez Primary Insurance:UMR ANGIE E [place] [id number] CLARKB: [facility] Number: [id number] [facility] , [place] [id number]: [id number] Repository Date:5658-39-50RH BOX () [address] [place] [phone]: 12/02/2017 Secondary NOT GIVENUNK [place] Insurance:SELF PAY [facility] Number: Effective Repository Date:2017-12-01 12/01/2017 Karina Rodríguez Primary Insurance:UMR ANGIE E [place] [id number] CLARKB: [address] Number: [id number] Hospital , [place] [id number]: [id number] Repository Date:1632-10-35ML BOX () [address] [place] [phone]: 12/01/2017 Secondary NOT GIVENUNK [place] Insurance:SELF PAY [facility] Number: Effective Repository Date:2017-12-01 12/01/2017 Karina Rodríguez Primary Insurance:UMR ANGIE E [place] [id number] BONILLAB: [place] [address]KevinBERINO Number: [id number] [facility] , [place] [id number]: [id number] Repository Date:6201-69-49VQ BOX () [address] [place] [phone]: 12/01/2017 Secondary NOT GIVENUNK Shira Insurance:SELF PAY [facility] Number: Effective Repository Date:2017-12-01 10/03/2017 Karina Rodríguez Primary Insurance:UMR ANGIE E [place] [id number] CLARKB: [address] Number: [id number] Hospital , [place] [address]Gvf: [id number] Repository Date:7352-41-77OA BOX () [address] [place] [phone]: 10/03/2017 Secondary NOT GIVENUNK [place] Insurance:SELF PAY [facility] Number: Effective Repository Date:2017-10-03
== END ==
PROVIDERS: Family Provider Family Medicine; PCP Family Medicine; Referring Provider Internal Medicine Rheumatology; Visit Provider Family Medicine
DX: E03.9 Hypothyroidism, unspecified (principal); M05.79 Rheumatoid arthritis with rheumatoid factor of multiple sites without organ or systems involvement; M15.9 Polyosteoarthritis, unspecified
CPT/HCPCS: 36415; 80053; 85025

== ENCOUNTER → 2018-08-10 14:00 | Outpatient (CLI) | payer OTHER, SELFPAY ==
--- NOTE | 2018-08-10 14:05 | BI_ITS ---
MAMMOGRAPHY - BILATERAL DIAGNOSTIC REASON FOR EXAM: Female, 57 years old. Pruritus of the right nipple. PERTINENT HISTORY: Non-contributory. TECHNIQUE: Digital bilateral breast cheo (3D mammographic acquisition) in the CC and MLO projections. 2-D mediolateral oblique (MLO) and craniocaudad (CC) views of both breasts were obtained. CAD: Full Field Digital Mammography with Computer Added Detection was performed. COMPARISON: Comparison is made with prior study dated December 23, 2016. FINDINGS: Breast Composition: There are scattered areas of fibroglandular density. There are no dominant masses or suspicious calcifications. Stable 7 mm x 7 mm well-defined nodule in the inferior lateral portion of the right breast. This was demonstrated to be a small lymph node by ultrasound. No other significant abnormalities are identified. There has been no significant change since the prior study. BI/DIAG MAMM W/CAD, BILAT IMPRESSION: Stable bilateral diagnostic mammogram. One year follow-up recommended. (A) ASSESSMENT CATEGORY: BIRADS Category 2: Benign. A letter regarding these results will be sent to the patient by the facility within 30 days. Approximately 10% of breast cancers are not detected by mammography. A normal mammogram should not delay biopsy of a clinically suspicious abnormality. Electronically Signed: Nile Dunn MD at 15:39 EST , Service support ,
== END ==
PROVIDERS: Family Provider Family Medicine; PCP Family Medicine; Referring Provider Obstetrics & Gynecology; Visit Provider Obstetrics & Gynecology
DX: N64.59 Other signs and symptoms in breast (principal)
CPT/HCPCS: 77062; 77066; G0279

== ENCOUNTER → 2018-08-31 12:27 | Outpatient (CLI) | payer OTHER, SELFPAY ==
[2018-08-24 09:29] VITALS: BMI 25.0
[2018-08-31 14:21] LABS: Absolute Neutrophil Count 2.5 X10^3/uL (2.0-7.7); Basophil# 0.03 X10^3/uL; Basophil% 0.6 % (0-1); Eosinophil# 0.05 X10^3/uL; Eosinophils% 1.1 % (0-5); Hematocrit 38.7 % (37-47); Hemoglobin 12.9 g/dl (12.0-15.0); Lymphocyte % 31.7 % (19-41); Mean Corp Hgb Conc 33.3 g/gl (32-36); Mean Corpuscular Hgb 32.3 pg (27.0-32.0); Mean Corpuscular Volume 96.8 fL (81-99); Mean Platelet Vol. 10.7 fl (6.2-12.0); Monocyte# 0.64 X10^3/uL; Monocyte% 13.5 % (0-10); Neutrophil # 2.51 X10^3/uL (2.7-7.7); Neutrophil % 53.1 % (47-70); Platelet Count 244 K/mm3 (150-450); RBC Distribution Width CV 13.5 % (11.6-14.6); RBC Distribution Width SD 45.5 fl (35.1-43.9); White Blood Count 4.7 K/mm3 (4.4-11.0)
[2018-08-31 14:27] LABS: POSITIVE COUNT NO; POSITIVE DIFFERENTIAL NO; POSITIVE MORPHOLOGY NO
[2018-08-31 14:36] LABS: ALB/GLOB Ratio 1.3 RATIO (0.9-2.4); AST(SGOT) 19 U/L (15-37); Alanine Aminotransfer ALT/SGPT 27 U/L (13-56); Albumin, Serum 4.3 g/dL (3.2-5.0); Alkaline Phosphatase 99 U/L (45-117); Anion Gap 8 (5-15); BUN 14 mg/dL (7-18); BUN/Creat Ratio 16.9 RATIO (10-20); Calcium,Total 9.3 mg/dL (8.5-10.1); Chloride 107 mmol/L (98-107); Creatinine, Serum 0.83 mg/dL (0.55-1.02); EST Glomerular Filtration Rate 76 mL/min (>60); Est Glom Filt Rate - Afr Amer 92 mL/min (>60); Globulin 3.4 g/dL (2.2-4.2); Glucose 89 mg/dL (74-106); Potassium 3.8 mmol/L (3.5-5.1); Protein, Total 7.7 g/dL (6.4-8.2); Sodium Level 140 mmol/L (136-145)
== END ==
PROVIDERS: Family Provider Family Medicine; PCP Family Medicine; Referring Provider Internal Medicine Rheumatology; Visit Provider Internal Medicine Rheumatology
DX: M05.79 Rheumatoid arthritis with rheumatoid factor of multiple sites without organ or systems involvement (principal); M15.9 Polyosteoarthritis, unspecified; E03.9 Hypothyroidism, unspecified; Z79.899 Other long term (current) drug therapy
CPT/HCPCS: 36415; 80053; 85025

== ENCOUNTER 2019-01-06 16:29 | Emergency (ER) | payer OTHER, SELFPAY ==
[2018-08-24 09:29] VITALS: BMI 25.0
[2019-01-06 16:30] VITALS: BP 119/62; PULSE 77; RESP 14; TEMP 36.6; O2SAT 99; BMI 25.0
--- NOTE | 2019-01-06 16:53 | RAD_ITS ---
STUDY: X-RAY - LEFT ANKLE REASON FOR EXAM: Female, 58 years old. Twisted ankle, swollen. TECHNIQUE: 3 view(s) of the ankle. COMPARISON: None. FINDINGS: Minimal degenerative spurring of the distal tibia. Otherwise unremarkable visualized distal tibia and fibula. Normal medial and lateral malleoli. Normal tibiotalar articulation and ankle mortise. Normal visualized talus and calcaneus. The visualized subtalar, talonavicular, calcaneocuboid and tarsal articulations are normal. There is moderate lateral and anterior soft tissue swelling. RAD/Ankle min 3 Views IMPRESSION: 1. Soft tissue swelling, otherwise negative study. Electronically Signed: Ninfa Urrutia MD at 17:34 EDT Tel , Service support ,
--- NOTE | 2019-01-06 16:56 | ED.VIS.GEN ---
History of Present Illness <Cleveland La - Last Filed: 01/06/19 17:43> Informant: Patient, Significant Other Onset: Today Timing: Continuous Current Severity: Mild Maximum Severity: Mild Worsened by: Ambulation Relieved by: Rest Narrative: Patient slipped off her new deck and twisted her left ankle. She denies other injury including head injury. There is no loss of consciousness. Has pain with ambulation. Prior similar symptoms: No Recent Illness/Hospitalization: No <Sharmin Billingsley - Last Filed: 01/06/19 18:04> Chief Complaint: Lower Extremity Injury Past Medical History <[place] La - Last Filed: 01/06/19 17:43> Smoking Status: Never smoker <Sharmin Billingsley - Last Filed: 01/06/19 18:04> - Allergies and Home Meds Allergies/Adverse Reactions: Allergies No Known Allergies Allergy (Verified 01/06/19 16:30) Primary Care Physician: Gretchen Stevenson MD [Primary Care Provider] - Review of Systems General: Denies: Chills, Fever, Sweats Eyes: Denies: Visual changes - bilaterally, Diplopia ENT: Denies: Rhinorrhea, Sore throat Cardiovascular: Denies: Chest pain, Palpitations Respiratory: Reports: Dyspnea Gastrointestinal: Denies: Nausea, Vomiting Musculoskeletal: Reports: Extremity Pain, - - Ankle pain. Denies: Back pain Skin: Denies: Rash, Wounds Neurological: Denies: Headache, Weakness, Numbness <Sharmin Billingsley - Last Filed: 01/06/19 18:04> Physical Exam Vital Signs/Narrative: Vital Signs Temp Pulse Resp BP Pulse Ox 01/06/19 16:30 97.9 F 77 14 119/62 99 <Cleveland La - Last Filed: 01/06/19 17:43> Vital Signs/Narrative: Vital Signs Temp Pulse Resp BP Pulse Ox 01/06/19 16:30 97.9 F 77 14 119/62 99 Inital Vital Signs reviewed: Yes General: Well nourished, Well developed, No Acute Distress Head: Normocephalic, Atraumatic Eyes: Perrl, EOMI ENT: Moist mucous membranes, No rhinorrhea Neck: Supple, Nontender Cardiovascular: Regular rate, Regular rhythm, No murmurs Respiratory: No distress, CTA bilaterally, Chest nontender Abdomen: Soft, Nontender, Nondistended, Normal bowel sounds Back: Nontender, Normal Inspection Extremities: Tenderness, Edema, - - There is mostly left lateral ankle tenderness. No Achilles tendon tenderness. Correa squeeze intact. He is neurovascularly intact. Skin is intact. Skin: Normal color, No rash Neurological: Alert, Oriented x3, Cranial nerves II-XII grossly intact, Normal Strength, Normal Sensation Psychological: Normal affect, Normal Mood <Sharmin Billingsley - Last Filed: 01/06/19 18:04> Diagnostic/Tx/Re-eval - Medical Decision Making Middle-aged female stepped off her porch and twisted her left lateral ankle. Complains of pain and swelling. No other injuries. Evaluated with our nurse practitioner. Physical exam vital signs stable and afebrile. HEENT exam unremarkable atraumatic. C-spine nontender. Lungs are clear. Heart regular rhythm. Chest nontender. Abdomen soft nontender. Extremities moves all 4. Neurovascular intact. Left hip and knee are nontender normal range of motion. Left lateral malleolus is swollen and tender. Medial malleolus is nontender. No gross bony deformity. There is tenderness intact. Dorsi plantar flexion intact. Foot nontender with normal DP pulse and touch sensation. Able to wiggle her toes. x-ray left ankle shows soft tissue swelling left lateral malleolus. But no fracture or dislocation. Impression: 1. Left lateral ankle sprain Aircast and crutches. Increase activity as tolerated. Ice and elevate. Motrin for pain. <C[place] La - Last Filed: 01/06/19 17:43> - Medical Decision Making Patient fell and twisted her left ankle. X-rays show no acute bony injury pattern of her ankle or foot. She is placed in Aircast and crutches and instructed to ice and elevate. She was instructed to use ibuprofen/NSAIDs for pain. She is agreeable to discharge plan. She remained neurovascularly intact and hemodynamically stable. She is discharged home in stable condition. Differential diagnosis: Left ankle/foot sprain versus left ankle fracture Final impression: Left ankle sprain <Sharmin Billingsley - Last Filed: 01/06/19 18:04> ED Disposition <[place] La - Last Filed: 01/06/19 17:43> <Sharmin Billingsley - Last Filed: 01/06/19 18:04> - Plan for ED Patient: Disposition: Home or Assisted Living Diagnosis: Ankle sprain Instructions: Sprain, Ankle, with X-Ray Referrals: Gretchen Stevenson MD [Primary Care Provider] - Additional Instructions: Use ankle splint for 5 to 7 days. Use crutches for the next 2 days to partial weight-bear. Ice and elevate your left ankle. Follow-up with your doctor next week.
--- NOTE | 2019-01-06 16:59 | RAD_ITS ---
STUDY: X-RAY - LEFT FOOT CLINICAL: Female, 58 years old. Twisted ankle. TECHNIQUE: 3 view(s) of the foot. COMPARISON: None. FINDINGS: Normal talus, calcaneus, and tarsal bones. Normal visualized subtalar, talonavicular, calcaneocuboid, tarsal and tarsometatarsal articulations. Normal metatarsi. Normal metatarsophalangeal joint of the great toe. Normal tibial and fibular sesamoid bones. Normal interphalangeal joint of the great toe. Normal phalanges of the great toe. Normal second through fifth metatarsophalangeal joints. Normal interphalangeal joints and phalanges of the lesser toes. The soft tissue structures are unremarkable. RAD/Foot min 3 Views IMPRESSION: Normal x-ray examination of the foot. Electronically Signed: Ninfa Urrutia MD at 17:37 EDT Tel , Service support ,
[2019-01-06 18:11] VITALS: PULSE 70; RESP 16; O2SAT 97
== END 2019-01-06 18:11 | disposition home or self-care (01) ==
PROVIDERS: Emergency Provider Nurse Practitioner; Family Provider Family Medicine; PCP Family Medicine
DX: S93.402A Sprain of unspecified ligament of left ankle, initial encounter (principal); W17.89XA Other fall from one level to another, initial encounter; X50.1XXA Overexertion from prolonged static or awkward postures, initial encounter; Y93.9 Activity, unspecified; Y92.008 Other place in unspecified non-institutional (private) residence as the place of occurrence of the external cause
CPT/HCPCS: 73610; 73630; 99283

== ENCOUNTER → 2019-08-21 07:57 | Outpatient (CLI) | payer OTHER, SELFPAY ==
--- NOTE | 2019-08-21 08:00 | BI_ITS ---
MAMMOGRAPHY - BILATERAL SCREENING REASON FOR EXAM: Female, 58 years old. Routine annual screening examination. PERTINENT HISTORY: Non-contributory. TECHNIQUE: Digital bilateral breast nori (3D mammographic acquisition) in the CC and MLO projections. 2-D mediolateral oblique (MLO) and craniocaudad (CC) views of both breasts were obtained. CAD: Full Field Digital Mammography with Computer Added Detection was performed. COMPARISON: Comparison is made with prior examination dated December 23, 2016 and August 10, 2018. FINDINGS: Breast Composition: There are scattered areas of fibroglandular density. There are no dominant masses or suspicious calcifications. Stable 7 mm x 7 mm well-defined nodule central lateral aspect of the right breast. This was demonstrated to be a small lymph node on prior ultrasound. No other significant abnormalities are identified. There has been no significant change since the prior study. BI/SCREEN MAMM (CAD) W/NORI BILAT IMPRESSION: Stable bilateral screening mammogram. Yearly follow-up mammogram recommended. (A) ASSESSMENT CATEGORY: BIRADS Category 2: Benign. A letter regarding these results will be sent to the patient by the facility within 30 days. Approximately 10% of breast cancers are not detected by mammography. A normal mammogram should not delay biopsy of a clinically suspicious abnormality. [id number] Electronically Signed: Nile Dunn, at 9:24 EST , Service support ,
--- NOTE | 2019-08-21 08:20 | BD_ITS ---
STUDY: DUAL ENERGY X-RAY ABSORPTIOMETRY / DXA REASON FOR EXAM: Female, 58 years old. 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 COMPARISON: None. FINDINGS: Lumbar Spine (L1-L4): g/cm2 (1.221) / T-score (0.4) / Z-score (1.4) Findings are suggestive of normal bone density with a low fracture risk. Left Femur Total: g/cm2 (1.010) / T-score (0.0) / Z-score (0.8) Left Femoral Neck: g/cm2 (1.003) / T-score (-0.3) / Z-score (0.8) Right Femur Total: g/cm2 (0.963) / T-score (-0.4) / Z-score (0.4) Right Femoral Neck: g/cm2 (0.935) / T-score (-0.7) / Z-score (0.3) BD/Dexa Bone Density Study IMPRESSION: The patient is considered normal as outlined below according to World Wesly Organization (WHO) criteria with a low fracture risk. Reference Information: The T-score is the number of standard deviations above or below the standard which is normal for young adults at their peak bone mineral density. The World Health Organization (WHO) interprets the T-scores as follows: Above -1 Normal bone density Between -1 and -2.5 Osteopenia Equal to / or below -2.5 Osteoporosis As a practical clinical guideline, osteopenia may be graded as follows: Mild -1 through -1.5 Moderate -1.6 through -2.0 Severe -2.1 through -2.4 The Z-score is the number of standard deviations above or below age-matched controls. A Z-score of less than -1.5 would be considered abnormal. References: 1. NIH Osteoporosis and Related Bone Diseases http://www.osteo.org 2. International Society for Clinical Densitometry http://www.iscd.org 3. National Osteoporosis Foundation http://www.nof.org Electronically Signed: Nile Dunn, at 12:41 EST , Service support ,
== END ==
PROVIDERS: Family Provider Family Medicine; PCP Family Medicine; Referring Provider Obstetrics & Gynecology; Visit Provider Obstetrics & Gynecology
DX: Z12.31 Encounter for screening mammogram for malignant neoplasm of breast (principal); Z13.820 Encounter for screening for osteoporosis; Z78.0 Asymptomatic menopausal state
CPT/HCPCS: 77063; 77067; 77080

== ENCOUNTER → 2020-01-22 10:32 | Outpatient (CLI) | payer OTHER, SELFPAY ==
[2020-01-22 13:12] LABS: Thyroid Stim Hormone (TSH) 3.71 uIU/mL (0.358-3.74)
== END ==
PROVIDERS: PCP Family Medicine; Visit Provider Family Medicine
DX: E03.9 Hypothyroidism, unspecified (principal)
CPT/HCPCS: 36415; 84443

== ENCOUNTER 2021-04-05 05:15 | Emergency (ER) | payer OTHER, SELFPAY ==
[2021-04-05 05:15] VITALS: BP 148/97; PULSE 70; RESP 18; TEMP 36; O2SAT 100; BMI 25.4
[2021-04-05] MEDS: proMETHazine 25 MG/ML Syringe 6.25 MG IM (06:01)
[2021-04-05] MEDS: Morphine 4 MG/ML Syringe IM (06:02)
--- NOTE | 2021-04-05 07:00 | EX.ED.UPPERE ---
HPI History of Present Illness HPI Narrative: Patient presents with pain in her left scapular area that has been getting worse for the past month. Patient states she had a massage 2 days ago. Patient thinks this made it worse. Patient admits to nausea but denies any vomiting. Patient states the pain radiates up into her neck. Patient denies any fevers or chills. Patient denies any trauma. Patient denies any paresthesias or weakness. Chief Complaint: Upper Extremity Injury Informant: patient Onset/Context/Timing Onset: Month(s) Context: Gradual Onset Timing: Continuous Quality of Pain: Sharp, Dull and Aching Location: Left scapula Worsened by: Massage Relieved by: Nothing Associated Symptoms Associated Symptoms: Positive for Parasthesia; Negative for Weakness and Loss of Funtion PFSH PFSH Medical History Hypothyroid Rheumatoid arthritis Home Medications folic acid 1 mg tablet 2 mg PO DAILY 08/24/18 [History Last Taken Unknown] levothyroxine 100 mcg capsule 100 mcg PO DAILY 08/24/18 [History Last Taken Unknown] methotrexate sodium 2.5 mg tablet 8 tab PO SA 08/24/18 [History Last Taken Unknown] ondansetron 4 mg PO Q8H PRN PRN #10 tab 04/05/21 [Rx Last Taken Unknown] Allergy/AdvReac Type Severity Reaction Status Date / Time No Known Allergies Allergy Verified 04/05/21 05:18 Surgical History h/o trigger thumb Hx of abdominoplasty Previous section S/P carpal tunnel release Social History Smoking Status: Former smoker alcohol intake: current ROS ROS ED Constitutional Constitutional ED: Reports sweats; Denies chills or fever(s) Eyes Eyes: Denies blurry vision or change in vision ENT ENT ED: Denies rhinorrhea or sore throat Cardiovascular Cardiovascular: Denies chest pain or palpitations Respiratory/Chest Respiratory/Chest: Denies cough or dyspnea Gastrointestinal Gastrointestinal: Reports nausea; Denies vomiting Genitourinary Genitourinary ED: Denies dysuria or hematuria Musculoskeletal Musculoskeletal: Reports back pain and neck pain Integumentary Denies abscess or rash Neurologic Neurologic: Denies headache(s) or weakness Allergic/Immunologic Allergic/Immunologic ED: Denies mouth swelling or urticaria EXAM Physical Exam Const Vital Signs: 04/05/21 05:15 Temperature 96.8 F L Temperature Source Temporal Pulse Rate 70 Respiratory Rate 18 Blood Pressure 148/97 H Blood Pressure Mean 114 Pulse Ox 100 Oxygen Delivery Method Room Air Positive well nourished and well developed General Appearance ED: well developed HEENT Reports moist mucous membranes Neck Neck Narrative: There is tenderness over the left cervical paraspinal muscles. There is no midline tenderness. There is no bony crepitance or step-off. General: tenderness Extremity Extremity Narrative: There is tenderness over the posterior aspect of the left shoulder and scapula. There is no bony crepitance or step-off. There is no deformity noted. Range of motion of the left shoulder was limited in all motion secondary to pain. Sensation was intact to light touch in the radial, median, and ulnar areas. Strength is 5/5 in the radial, median, and ulnar areas. Neuro oriented x3, CN's II-XII intact bilaterally, moves all extremities, no focal motor deficits and no sensory deficits noted Sensorium / Orientation: alert Psych mental status grossly normal MDM MDM MDM Narrative Medical decision making narrative: Patient was given an injection of Phenergan here. Patient was given injection of morphine. Patient was given a prescription for Zofran. Patient was instructed to continue her OxyContin as previously prescribed. Patient was instructed to follow-up with her primary care physician in 3 to 5 days. Patient understood and was agreeable with the plan. All questions were answered. Discharge Plan Triage Chief Complaint: Upper Extremity Injury ED Provider: Faisal Harmon Dx/Rx/DC Orders Clinical Impression: Acute pain of left shoulder Instructions: ED Shoulder Pain, Uncertain Cause Prescriptions: New ondansetron [ondansetron] 4 MG tablet 4 mg PO Q8H PRN PRN (Reason: Nausea) Qty: 10 RF: 0 No Action levothyroxine 100 mcg capsule 100 mcg PO DAILY RF: 0 folic acid 1 mg tablet 2 mg PO DAILY RF: 0 methotrexate sodium 2.5 mg tablet 8 tab PO SA RF: 0 Primary Care Provider: Gretchen Stevenson Referrals: Gretchen Stevenson MD [Primary Care Provider] - 3-5 Days Disposition Disposition: Home, Self Care
[2021-04-05] MEDS: HYDROcodone Bitartrate/Apap 5/325 Tablet PO (08:19)
--- NOTE | 2021-04-05 08:34 | ED.RN ---
Patient in waiting room waiting on ride and states her pain med isn't working anymore. I reviewed the chart and informed her i was unlikely the physician would order another injection.
--- NOTE | 2021-04-05 09:25 | ED.RN ---
spoke with physician about pt receiving another injection. He refused. The patient was notified and became agitated stating she was going to receive a high bill for this visit and nothing was done. Stated no one did anything for me. I verified with patient she had been evaluated and received medicine as ordered. She was informed that often our goal is not to alleviate pain but rather make pain tolerable. I did ask the physician for a po med which he agreed and ordered norco x1. The patient was very satisfied. Took tab and left department graciously.
== END 2021-04-05 07:23 | disposition home or self-care (01) ==
PROVIDERS: Emergency Provider Emergency Medicine; PCP Family Medicine
DX: M25.512 Pain in left shoulder (principal); E03.9 Hypothyroidism, unspecified; M06.9 Rheumatoid arthritis, unspecified; Z79.899 Other long term (current) drug therapy; Z87.891 Personal history of nicotine dependence
CPT/HCPCS: 96372; 99282

== ENCOUNTER → 2021-05-15 06:31 | Outpatient (CLI) | payer OTHER, SELFPAY ==
--- NOTE | 2021-05-15 06:33 | MRI_ITS ---
STUDY: MRI CERVICAL SPINE WITHOUT CONTRAST REASON FOR EXAM: Female, 60 years old. pain, left arm pain TECHNIQUE: Standardized fat and water weighted pulse sequences were obtained in the sagittal and axial planes. COMPARISON: None FINDINGS: Normal foramen magnum and brainstem-cervical cord junction. Normal craniovertebral junction. Normal anterior atlantoaxial articulation. Normal odontoid process. Normal cervical lordosis. Normal vertebral bodies and posterior osseous elements. C2-3: Normal endplates. Normal disc height, signal and morphology. Normal central canal and intervertebral neural foramina. C3-4: Normal endplates. Normal disc height, signal and morphology. Normal central canal and intervertebral neural foramina. C4-5: Mild broad disc osteophyte complex present is mild spinal stenosis but no neural foraminal stenosis. C5-6: Moderate broad disc osteophyte complex asymmetric to the right with right upper quadrant hypertrophy produces moderate spinal stenosis with abutment of the right hemicord and mild right neural foraminal stenosis C6-7: Moderate broad disc osteophyte complex and bilateral targeted opportunity to moderate spinal stenosis with abutment central spinal cord and mild bilateral neural foraminal stenosis. C7-T1: Normal endplates. Normal disc height, signal and morphology. Normal central canal and intervertebral neural foramina. Normal cervical cord. Normal visualized soft tissue structures. MRI/Spine Cervical (Routine) IMPRESSION: Multilevel degenerative changes, as described above. Electronically Signed: Odell Taylor MD at 10:59 EDT Tel , Service support ,
== END ==
PROVIDERS: PCP Family Medicine; Referring Provider Orthopaedic Surgery; Visit Provider Orthopaedic Surgery
DX: M50.20 Other cervical disc displacement, unspecified cervical region (principal)
CPT/HCPCS: 72141

== ENCOUNTER 2021-06-23 11:56 | Observation (INO) | payer OTHER, SELFPAY ==
--- NOTE | 2021-06-19 16:30 | EKG12_ITS ---
Test Reason : PRE-OP Blood Pressure : / mmHG Vent. Rate : 059 BPM Atrial Rate : 059 BPM P-R Int : 166 ms QRS Dur : 080 ms QT Int : 430 ms P-R-T Axes : 041 002 034 degrees QTc Int : 425 ms Sinus bradycardia Otherwise normal ECG Confirmed by LATRELL FRANK, YULIANA ([id number]), editor dictionary DENZEL MCCLURE ([id number]) on 06/22/2021 10:04:25 A M Referred By: Cody Fontenot Confirmed By:TRISTEN SAMS MD
[2021-06-19 17:19] LABS: Absolute Lymphocyte Count 1.15 X10^3/uL (0.83-4.51); Absolute Neutrophil Count 4.2 X10^3/uL (2.0-7.7); Basophil# 0.04 X10^3/uL; Basophil% 0.6 % (0-1); Eosinophils% 1.6 % (0-5); Hematocrit 41.1 % (37-47); Hemoglobin 13.3 g/dL (12.0-15.0); Lymphocyte # 1.15 X10^3/ul (0.83-4.51); Lymphocyte % 18.1 % (19-41); Mean Corp Hgb Conc 32.4 g/dL (32-36); Mean Corpuscular Hgb 30.8 pg (27.0-32.0); Mean Corpuscular Volume 95.1 fL (81-99); Mean Platelet Vol. 9.5 fl (6.2-12.0); Monocyte% 12.6 % (0-10); NRBC Flagged by Analyzer 0 % (0-5); Neutrophil # 4.24 X10^3/uL (2.7-7.7); Neutrophil % 66.8 % (47-70); Platelet Count 317 K/mm3 (150-450); RBC Distribution Width SD 44.4 fl (35.1-43.9); Red Blood Count 4.32 M/mm3 (4.2-5.4); White Blood Count 6.4 K/mm3 (4.4-11.0)
[2021-06-19 17:53] LABS: Anion Gap 7 (5-15); BUN 18 mg/dL (7-18); BUN/Creat Ratio 19.3 RATIO (10-20); Calcium,Total 9.2 mg/dL (8.5-10.1); Chloride 106 mmol/L (98-107); Creatinine, Serum 0.93 mg/dL (0.55-1.02); EST Glomerular Filtration Rate 66 mL/min (>60); Est Glom Filt Rate - Afr Amer 79 mL/min (>60); Glucose 96 mg/dL (74-106); Potassium 3.8 mmol/L (3.5-5.1); Sodium Level 139 mmol/L (136-145)
[2021-06-19 18:18] LABS: Magnesium 2.1 mg/dL (1.6-2.6)
[2021-06-20 12:08] LABS: HIV - WCH Non-Reactive (Nonreactive); Hepatitis B Surface Antibody Reactive; Hepatitis C Antibody Non-Reactive (Nonreactive)
[2021-06-21 15:56] LABS: Hepatitis A AB, Total Negative (Negative)
--- NOTE | 2021-06-22 10:18 | PCM.HP.BLA ---
History and Physical Date of Admission: 06/23/21 [facility] [id number] [phone] OFFICE VISITDate of Service: 04/29/21 MR#:[id number]:[id number]: SAMSON BONILLARep #:[id number]:1960 Provider:Dr. Cody Fontenot DOAge/Sex: 60/F [place] [place] Int[place] Intake Visit Reasons: Cervical spine Allergies No Known Allergies Allergy (Verified 04/05/21 05:18) Medications folic acid 1 mg tablet 2 mg PO DAILY 08/24/18 [History Confirmed 04/29/21] levothyroxine 100 mcg capsule 100 mcg PO DAILY 08/24/18 [History Confirmed 04/29/21] methotrexate sodium 2.5 mg tablet 8 tab PO SA 08/24/18 [History Confirmed 04/29/21] gabapentin 100 mg capsule 100 mg PO cap 04/29/21 [History Confirmed 04/29/21] hydroxychloroquine 200 mg tablet 200 mg PO tab 04/29/21 [History Confirmed 04/29/21] niacin 500 mg tablet,extended release 24 hr 500 mg PO tab 04/29/21 [History Confirmed 04/29/21] PFSH Medical History Hypothyroid Rheumatoid arthritis Surgical History h/o trigger thumb Hx of abdominoplasty Previous section S/P carpal tunnel release Social History Smoking Status: Former smoker alcohol intake: current HPI Cervical spine Details: Parts of this documentation were recorded by a scribe, this documentation accurately reflects the service provided and the decisions made by me, Dr. Cody Fontenot DO 04/29/21 0811. SAMSON BONILLA is a 60 year old F NEW patient here today for cervical spine pain that she has had since 08/2020 but the pain worsened over the last 4 months. SHe has left sided neck pain that radiates down her arm into her hand. She states that she that she has numbness and tingling into the index finger. She was recently in the ER and had a morphine shot and states that her pain has improved since then. Denies any PT. She denies any NSAIDs for the cervical spine pain. She has been using ice every night and using a TENs unit at home for the pain. She had tried the deep tissue massage and cupping for about 4-6 weeks. She states that about 1 month ago she had a deep tissue massage and felt better the same day but the next day her pain was increased. She states that her pain would increase while she was sitting at work but when she was home just working around the house she didnt have any pain. She has also had manager intensive care unit a few times before her ER visit. She also saw [facility] Dr. Cotton in [place] and this doctor was not sure of the issue. Patient then saw her PCP and was given a HEP which she did for about 2-3 weeks and she also reports loosing strength in the left arm. Denies any injections or surgery of the cervical spine. She has a disc today with xrays of the cervical spine from 02/2021. She has also tried Naproxen, Oxycodone, Flexiril, Medrol dose see, and tylenol for the pain which have not been effective. Samson is a most pleasant young lady 60 years old that has a chief complaint of pain on the left side of her neck that radiates into the triceps and down the right arm with numbness mostly in the index finger. This is suggesting 2 different nerve roots C7 and C6. The history above this started way back in August of this year. It was insidious in onset and kept getting worse. She thinks that the last 3 to 4 months it has been worse and she feels that her left arm is getting even more weak. She denies any bowel or bladder dysfunction. She denies history of unexplained weight loss night fever sweats or chills. On examination oddly enough she does not have any pain with extension of her neck or flexion however she does have a positive Spurling's to the left side that increases the pain at the base of the neck and into the shoulder. Her left triceps reflex is absent all the others are 2+ and equal bilaterally. She has weakness and atrophy of the left triceps as compared to the right. The weakness is not dramatic but it is still very significant as is the atrophy compared to the opposite side. She has no long tract signs. Clonus is absent Babinski's are downgoing. Review of plain x-rays on a disc demonstrate that she has a decreased disc space at C5-6. With the significant neurological deficit and the length of time that this has been going on an MRI scan is in order. In addition we will try to round up the EMG nerve conduction findings from the study done at the [facility] in March of this year. ROS ENT Reports neck pain Musc Denies arthralgias, Denies joint swelling, Reports neck pain, Reports numbness, Reports radiating pain into limb and Reports tingling Skin/Breast Denies erythema, Denies lesions, Denies pruritus, Denies rash and Denies skin swelling Neuro Yes numbness and Yes tingling Coding Level of Care Code Off vis,new,level 3 Diagnoses Herniated disc, cervical M50.20 C7 radiculopathy M54.12 Time Spent (min) 30 Assessment and Plan Assessment and Plan (1) Herniated disc, cervical: Status: Acute (2) C7 radiculopathy
[2021-06-23] VITALS (10 sets, daily range): BP systolic 101–138; BP diastolic 57–89; PULSE 60–91; RESP 12–18; TEMP 36.1–37.2; O2SAT 94–99; BMI 25.4
--- NOTE | 2021-06-23 | DISC_PTH ---
PATIENT: SAMSON BONILLA LOC: MS3 U#:[id number] AGE/SX: 60/F ROOM: [facility] RE06/23/[address]: Dr. Cody Fontenot DO : 1960 BED: 1 DIS: 06/24/2021 SPEC #: [id number] RECD: 06/23/21 14:27 STATUS: DANICA RERowan #: [id number] KAY: 06/23/21 00:[address]: Cody Fontenot DEPT: SURGICAL PATHOLOGY RECD BY: Jesus Hernandez ENTERED: 06/23/21 14:27 SP TYPE: DISC OTHR DR: Dr. Gretchen Stevenson MD Tissues: Intervertebral disc, NOS Procedures: Surgery Specimen Level III HEADER OPERATION: ERAS, anterior cervical fusion C5-C6, C6-C7 PRE-OP DIAGNOSIS: Herniated disc, cervical, C7 radiculopathy TISSUE SUBMITTED: Disc C5-C6, C6-C7 MICROSCOPIC DIAGNOSIS Intervertebral disc, C5-7, discectomy: Fragments of intervertebral disc with degenerative change. AM:chaim 06/24/2021 MICROSCOPIC DESCRIPTION Slides are reviewed. GROSS DESCRIPTION Received in fixative is one container labeled with the patient's name and designated disc C5-7. The specimen consists of multiple irregular fragments of light chapman-white soft tissue that in aggregate measure 5 x 5 x 0.3 cm. Inspector Shells portions are submitted in one cassette. / AM:chaim 06/23/21 TC:5 CPT: 16756
--- NOTE | 2021-06-23 06:29 | SUR.PREOP ---
pt started amoxicillin 06/18 for sore throat. covid neg. no sore throat today. notified anesthesia.
[2021-06-23] MEDS: Acetaminophen 500 MG Tablet 1000 MG PO (06:53)
[2021-06-23] MEDS: Lactated Ringers 1,000 ML 15 ML IV (06:55)
[2021-06-23 07:35] LABS: Bedside Glucose 86 mg/dL (70-110)
[2021-06-23] MEDS: Cefazolin 2 GM in 0.9% Normal Saline 100 ML IV (07:54)
--- NOTE | 2021-06-23 08:15 | RAD_ITS ---
STUDY: X-RAY - CERVICAL SPINE REASON FOR EXAM: Female, 60 years old. ANTERIOR FUSION, C5-6, C6-7, LEFT TECHNIQUE: 1 view(s) of the cervical spine were obtained. COMPARISON: None FINDINGS: The localization instrument is seen anterior to the C6 vertebra. RAD/Spine 1 View Any Level IMPRESSION: The localization instrument is seen anterior to the C6 vertebrae. Electronically Signed: Nile Dunn MD at 10:26 EST , Service support ,
--- NOTE | 2021-06-23 09:15 | RAD_ITS ---
STUDY: X-RAY - CERVICAL SPINE REASON FOR EXAM: Female, 60 years old. IMAGE 2 TECHNIQUE: 1 view(s) of the cervical spine were obtained. COMPARISON: Comparison is made with prior study done earlier in the day. FINDINGS: The localization instrument is seen along the anterior aspect of the C5-C6 disc space level. RAD/Spine 1 View Any Level IMPRESSION: The localization instrument is seen along the anterior aspect of the C5-C6 disc space level. Electronically Signed: Nile Dunn MD at 10:27 EST , Service support ,
[2021-06-23] MEDS: Heparin 10,000 UNITS/10 ML Vial 10000 UNITS (09:55)
[2021-06-23] MEDS: THROMBIN (RECOMBINANT) 20,000 UNIT VIAL 20000 UNIT TOPICAL (09:56)
--- NOTE | 2021-06-23 11:00 | RAD_ITS ---
STUDY: X-RAY - CERVICAL SPINE REASON FOR EXAM: Female, 60 years old. IMAGE NUMBER 3 TECHNIQUE: 1 view(s) of the cervical spine were obtained. COMPARISON: None FINDINGS: The patient is status post anterior fusion and disc replacement at the C5-C6 and C6-C7 levels. RAD/Spine 1 View Any Level IMPRESSION: Status post anterior fusion with disc replacement at the C5-C6 and C6-C7 levels. Electronically Signed: Nile Dunn MD at 12:33 EST , Service support ,
--- NOTE | 2021-06-23 12:08 | OP.PCM_ITS ---
Report of Operation Date of Procedure: 06/23/21 Description of Surgical Findings:: Preoperative diagnosis: Herniated disc C6-7 left and C5-6 right Postoperative diagnosis: The same Procedures: #1 anterior cervical fusion C6-7 CPT code 69116 #2 application of spine plate from C5-C7 CPT code 80898/59 #3 anterior cervical fusion C5-6 CPT code 78812/51 #4 insertion of cage C6-7 CPT code 42415 #5 insertion of cage C5-6 CPT code 66985/51 Prior to continuing the actual procedure description I would like to make a point about the CPT codes above. I talked to an internal medicine physician yesterday that works for [employer] and he explained to me that code 44624 and 78006/51 would be denied by [facility] according to their policy. He even explained to me that every time he talks to a neurosurgeon they explained as I did that titanium cages are the standard of care in this day and age. Straight allograft bone has not been the standard of care for 20 years or more. This is what [facility] wishes. Of course this is all because of money. It is astounding to me that a major insurance company would pretend that titanium cages and anterior cervical fusion are not the standard of care. Again this is to save money and I will not mince my words about that. Now the hospital will have to eat the cos t of these of these 2 titanium cages. The hospital will challenge the [facility] policy which to me is beyond belief. Surgeon: Dr. Fontenot Page Makeup System Operator: Jaz MUSTAFA Anesthesia: General endotracheal anesthesia administered by [facility] EBL: Less than 30 cc Drains: 1/4 inch Jason Complications: None Procedure: Patient was taken to the OR where she was placed in the supine position on the operating table she was then placed under general endotracheal anesthesia. A Triana catheter was inserted. Neuro monitoring then placed all their leads and the patient. I a Kerlix was placed from the volar aspect of 1 rested to the other with the long and hanging be on her feet. This is to pull down the shoulders during x-rays during the case. Once positioned, a preoperat angel x-ray was taken with a marker taped to the side of the neck at the level of one of her normal folds of her neck in the longer's lines. This was marked with a small laceration using the end of the needle. The neck and the right iliac crest area were prepped and draped in standard fashion. First we obtained to the bone marrow aspirate from the right iliac crest. A small puncture incision was made over the ASIS and a Jamshidi needle placed in the center of the crest and hammered into place about 2 or 3 cm into the medullary bone between the cortices. 60 cc of bone marrow aspirate was obtained and handed off to the emergency room technician in the room. She then used a centrifuge to separate the stem cells from the rest of the cells and was able to concentrate them later 10 times and given back to us at the table. The incision was then made at that predetermined point right in line with her normal skin fold as mentioned previously. Subcutaneous tissues were incised the length of the skin incision. Then elevated subcutaneous tissues off of the platysma above and below. I then split the platysma longitudinally near its medial edge. A very large vein was there anteriorly we kept it to the left of the approach. I then exploited the area between the sternocleidomastoid and the medial strap muscles. First I opened the superficial cervical fascia followed by the opening of the pretracheal fascia. Note that we identified the carotid pulse and protected it throughout the procedure. I then retracted the trachea and esophagus to the left the carotid and sternocleidomastoid to the right exposing the disc thought to be C5- 6. An intraoperative x-ray was taken with a needle in place to confirm that that was indeed C5-6. With the needle still in place we moved down to C6-7 and cauterized a hole in the anterior portion of 6 7 that would be approached first. I then cauterized the longus coli muscles on either side and put the project surveyor retractors in place under the coli muscles this gave us excellent access to the C6-7 space. Note that throughout the case we thoroughly irrigated every 10 to 15 minutes in the course of the case to prevent infection. I then cut the anterior annulus with a 15 blade removed the nucleus and annulus with pituitary rongeurs. This was taken back to near the posterior annulus. I used cautery to cauterize the anterior longitudinal ligament and periosteum above and below the C6-7 space. I then remove the anterior osteophytes with double-action rongeurs and the a anuja bur. A distractor was then put on the right side of the space give me good access I removed cartilage off the endplates with sharp angled curettes. Using the anuja bur I then burred down the uncinate process on the left side give me good access to the foramen. Using curettes I then removed disc material that had protruded and removed free fragments of disc that were the cause of her left arm pain. We then took her measurements for the cage. I did flatten the backside of the space and the area around both uncinate processes to fit a bit bigger cage again this was done using the anuja bur. Once this was done we use a trial and ended up using an 8 mm trial. It was the larger of the 2 cages 14 deep and 16-1/2 mm wide. This was with a 7 degree angle. We then filled the center of the cage with demineralized bone matrix that was soaked in the patient's concentrated stem cells. This cage was then tamped into place with anesthesia plan on the head and countersunk 2 to 3 mm. We then removed the instrumentation and moved up to the next level that is C5-6. Again the longus coli muscles were cauterized on either side and elevated gently off the space in the same project surveyor retractors were put in place I cut the anterior annulus removed it and removed more nucleus from within the disc space. Note that she had foraminal stenosis at this level on the right side and using the anuja bur technique I again removed the uncinate process on the right side near its been. This completely decompressed the C6 nerve root on the right side. Again all the cartilage was removed off both endplates and the bur was used to flatten the curve sides of the uncinate process and the back of the interspace. We did a trial with a 7 mm high cage also a large. Again the cage was filled with DBM that was filled with the patient's own stem cells and put in the center of the cage. This was then tamped into place and countersunk 2 to 3 mm. A 45 mm plate was used it was bent just a tiny bit with the plate carr it was centered and the first of 6 holes were made with the awl. We then placed placed 2 screws into C7 2 into C6 and 2 into C5. This was seen on the lateral projection on plain x-ray was found to be quite satisfactory with good position of the plate the screws and the cages. Amniotic membrane was then placed over the plate to prevent adhesions to the esophagus. The 1/4 inch [place] drain was then inserted. We then closed the platysma running fashion with 5-0 Vicryl followed by closure of the subcutaneous tissues with 5-0 Vicryl in interrupted fashion. This brought the skin together well right in her normal folds. Sterile dressings were applied and a safety pin was placed through the drain to prevent a suction into the wound. Patient was then recovered in the OR moved to her hospital bed and taken to recovery in satisfactory condition. The end of operative summary on Karina Zhang. This is Dr. Fontenot dictating.
[2021-06-23] MEDS: dexAMETHasone 4 MG/ML Vial IV (14:51)
[2021-06-23] MEDS: Cefazolin 1 GM/50 ML BAG IV (16:06)
[2021-06-23] MEDS: Morphine 2 MG/ML Syringe IV ×2 (16:17→21:36)
[2021-06-23] MEDS: Ondansetron 4 MG/2 ML Vial IV (16:17)
[2021-06-23] MEDS: Lactated Ringers 1,000 ML 100 ML IV (17:05)
[2021-06-23] MEDS: Ensure Surgery 237 ML LIQUID PO (17:56)
[2021-06-23] MEDS: Famotidine 20 MG Tablet PO (20:28)
[2021-06-23] MEDS: dexAMETHasone 4 MG/ML Vial 2 MG IV (20:28)
[2021-06-23] MEDS: Senna/Docusate Sodium 1 Tablet 2 TABLET PO (20:31)
--- NOTE | 2021-06-23 21:16 | PCS.PANDOC ---
PANDEMIC DOCUMENTATION INITIATED: Date: 03/02/2021 Time: 190
[2021-06-24] MEDS: Cefazolin 1 GM/50 ML BAG IV
[2021-06-24] MEDS: dexAMETHasone 4 MG/ML Vial 2 MG IV ×2 (02:32→09:00)
[2021-06-24 02:38] VITALS: BP 103/83; PULSE 50; RESP 16; TEMP 36.9; O2SAT 92
[2021-06-24 05:00] VITALS: BP 119/66; PULSE 78; RESP 16; TEMP 36.7; O2SAT 96
[2021-06-24] MEDS: Levothyroxine 100 MCG Tablet PO (05:27)
[2021-06-24 07:59] VITALS: BP 103/52; PULSE 54; RESP 16; TEMP 36.8; O2SAT 96
[2021-06-24] MEDS: Ondansetron 4 MG/2 ML Vial IV (08:22)
[2021-06-24] MEDS: 0.9% NaCl Peripheral Flush Adult/Peds IV (08:22)
[2021-06-24] MEDS: oxyCODONE 5 MG Tablet PO (08:23)
[2021-06-24] MEDS: Ensure Surgery 237 ML LIQUID PO ×2 (08:23→12:00)
[2021-06-24] MEDS: Senna/Docusate Sodium 1 Tablet 2 TABLET PO (09:00)
[2021-06-24] MEDS: Folic Acid 1 MG Tablet 2 MG PO (09:00)
[2021-06-24] MEDS: Famotidine 20 MG Tablet PO (09:00)
--- NOTE | 2021-06-24 12:35 | CASEMGMT ---
BONY BARNES Assessment: Face to Face with pt for initial transition planning/care coordination assessment. RN CAMERON introduced self and role at [facility], pt voices understanding and consents to assessment. Pt is A/O x4 and answers all questions appropriately at this time. Pt sitting up in bed in no distress, at bedside. Care providers, pharmacy, and demographics verified/updated. Admitting Dx: anterior cervical fusion LT C5-C6, C6-C7 PCP:[facility] Specialists: Po, spine surgeon; jennifer Zimmerman Preferred Pharmacy: [facility] while inpt Insurance: [employer] Prescription Benefit: yes LW/HPOA: Pt denies having a LW/DPOA and denies need for info regarding AD. LNOK: Mitchel Zhang, Living Arrangements: Pt lives with in a two story house with no steps to enter. Pt reports she is I in ADL's and denies concerns at home. Transportation: Pt drives self and denies concerns with transportation. DME/HHC/SNF: Pt denies having any DME, hx of HHC or SNF stay. Pt states she is up indep in room. Pt states no concerns with going home at time of dc. Pt states no further concerns/needs. CM to follow. Advised pt to ask CM if any further question/concerns/needs arise, voices understanding. Pt Goal: Home Plan: Home
--- NOTE | 2021-06-24 13:22 | PCM.DC ---
Discharge Instructions Follow Up Care Test Results: Test results from this visit will be discussed in further detail at your follow-up appointment, if applicable. Discharge Plan Admission Admit Date/Time: 06/23/21 11:56 Primary Reason for Your Visit: surgery Attending Provider: Cody Fontenot Primary Care Provider: Gretchen Stevenson Discharge Orders/Prescriptions Prescriptions: No Action levothyroxine 100 mcg capsule 100 mcg PO DAILY RF: 0 folic acid 1 mg tablet 2 mg PO DAILY RF: 0 methotrexate sodium 2.5 mg tablet 8 tab PO SA RF: 0 hydroxychloroquine 200 mg tablet 200 mg PO DAILY RF: 0 niacin 500 mg tablet extended release 24 hr 500 mg PO DAILY RF: 0 prednisone 10 mg Tablet 10 mg PO DAILY PRN (Reason: arthritis flare up) RF: 0 naproxen 250 mg Tablet 250 mg PO BID PRN (Reason: Pain) RF: 0 amoxicillin 875 mg Tablet 875 mg PO BID RF: 0 Other Ambulatory Orders: 12 Lead EKG (Routine) Timeframe: 20210619 Location: None Selected Ordered By: Dr. Cody Fontenot Referrals / Follow Up: Gretchen Stevenson MD [Primary Care Provider] - Disposition Disposition (needs filled in before D/C Order can be placed): Home, Self Care
[2021-06-24 13:23] VITALS: BP 103/59; PULSE 85; RESP 16; TEMP 36.8; O2SAT 94
--- NOTE | 2021-06-24 13:24 | PCM.DC.SUM ---
Providers Date of Admission: 06/23/21 Primary Care Physician: Dr. Gretchen Stevenson MD Reason For Visit: ANTERIOR CERVICAL FUSION LT C5-C6,C6-C7 Medications at Discharge Home Medications folic acid 1 mg tablet 2 mg PO DAILY 08/24/18 levothyroxine 100 mcg capsule 100 mcg PO DAILY 08/24/18 methotrexate sodium 2.5 mg tablet 8 tab PO SA 08/24/18 hydroxychloroquine 200 mg tablet 200 mg PO DAILY tab 04/29/21 niacin 500 mg tablet,extended release 24 hr 500 mg PO DAILY tab 04/29/21 naproxen 250 mg PO BID PRN 06/16/21 prednisone 10 mg PO DAILY PRN 06/16/21 amoxicillin 875 mg PO BID 06/23/21 Hospital Course Summary of Care Provided Hospital Course: This is discharge summary on Karina Zhang. This patient was admitted yesterday 23 June. She underwent anterior cervical discectomy with interbody fusions at C5-6 and C6-7. Discharged today we change the dressing the drain was removed and the incision is healing well. She reports complete relief of her left arm pain. She has little trouble swallowing of course as expected. Her voice is just a little hoarse and she is lost a little bit of voice volume. She was given post A/C DIF protocol regarding activities. She already has and appointment with me in my office in a couple of weeks. She is told to keep the dressing on until Tuesday and on Tuesday she can start showering. This is the end of discharge summary onKarina Zhang. This is Dr. Fontenot dictating. Weight / BMI Weight Weight: 167 lb 8.821 oz Body Mass Index (BMI) 25.4 ABG / Lab / Microbiology Data Result Diagrams: 06/19/21 16:51 06/19/21 16:51 Microbiology: Microbiology 06/19/21 16:51 Swab (Method) Nasal Screen MRSA/MSSA - Final Meaningful Use Info Meaningful Use Diagnoses (Choose all that apply): None applicable Discharge Plan Admission Admit Date/Time: 06/23/21 11:56 Primary Reason for Your Visit: surgery Attending Provider: Cody Fontenot Primary Care Provider: Gretchen Stevenson Discharge Orders/Prescriptions Prescriptions: No Action levothyroxine 100 mcg capsule 100 mcg PO DAILY RF: 0 folic acid 1 mg tablet 2 mg PO DAILY RF: 0 methotrexate sodium 2.5 mg tablet 8 tab PO SA RF: 0 hydroxychloroquine 200 mg tablet 200 mg PO DAILY RF: 0 niacin 500 mg tablet extended release 24 hr 500 mg PO DAILY RF: 0 prednisone 10 mg Tablet 10 mg PO DAILY PRN (Reason: arthritis flare up) RF: 0 naproxen 250 mg Tablet 250 mg PO BID PRN (Reason: Pain) RF: 0 amoxicillin 875 mg Tablet 875 mg PO BID RF: 0 Other Ambulatory Orders: 12 Lead EKG (Routine) Timeframe: [id number] Location: None Selected Ordered By: Dr. Cody Fontenot Referrals / Follow Up: Gretchen Stevenson MD [Primary Care Provider] - Disposition Disposition (needs filled in before D/C Order can be placed): Home, Self Care
== END 2021-06-24 15:20 | disposition home or self-care (01) ==
LOC: SDC 16:37 → MS3 16:38
PROVIDERS: Anesthesiology; Admitting Provider Orthopaedic Surgery; PCP Family Medicine; Referring Provider Orthopaedic Surgery; Visit Provider Orthopaedic Surgery
PROC: (CPT 22551; principal; 2021-06-23 07:00)
DX: M50.122 Cervical disc disorder at C5-C6 level with radiculopathy (principal); M06.9 Rheumatoid arthritis, unspecified; M50.123 Cervical disc disorder at C6-C7 level with radiculopathy; E78.00 Pure hypercholesterolemia, unspecified; E03.9 Hypothyroidism, unspecified; Z79.899 Other long term (current) drug therapy; Z79.890 Hormone replacement therapy; Z79.51 Long term (current) use of inhaled steroids; Z87.891 Personal history of nicotine dependence
CPT/HCPCS: 20931; 20938; 22551; 22552; 22845; 22853; 00670; 36415; 72020; 80048; 82962; 83735; 84443; 85025; 86703; 86706; 86708; 86803; 87081; 88304; 93005; 96365; 96366; 96375; 96376; 99218; 99251; 99406; C1713; J7120; A4216; G0378; G0463; J2405

== ENCOUNTER → 2022-06-24 | Outpatient (CLI) | payer OTHER, SELFPAY ==
--- NOTE | 2022-06-24 07:31 | BI_ITS ---
MAMMOGRAPHY - BILATERAL SCREENING REASON FOR EXAM: Female, 61 years old. Routine annual screening examination. PERTINENT HISTORY: Non-contributory. TECHNIQUE: Digital bilateral breast nori (3D mammographic acquisition) in the CC and MLO projections. 2-D mediolateral oblique (MLO) and craniocaudad (CC) views of both breasts were obtained. CAD: Full Field Digital Mammography with Computer Added Detection was performed. COMPARISON: Comparison is made with prior study dated 08/21/2019 and 08/10/2018. FINDINGS: Breast Composition: There are scattered areas of fibroglandular density. There are no dominant masses or suspicious calcifications. Stable 7 mm well-defined nodule in the central lateral aspect of the Stable small benign-appearing bilateral axillary lymph nodes. No other significant abnormalities are identified. There has been no significant change since the prior study. BI/SCRN MAMM (CAD)W/NORI BILAT IMPRESSION: Stable bilateral screening mammogram. Yearly follow-up mammogram recommended. (A) ASSESSMENT CATEGORY: BIRADS Category 2: Benign. A letter regarding these results will be sent to the patient by the facility within 30 days. Approximately 10% of breast cancers are not detected by mammography. A normal mammogram should not delay biopsy of a clinically suspicious abnormality. [id number] Electronically Signed: Nile Dunn MD at 8:37 EST ,
== END | disposition home or self-care (01) ==
LOC: OPBI 07:30
PROVIDERS: PCP Family Medicine; Visit Provider Family Medicine
DX: Z12.31 Encounter for screening mammogram for malignant neoplasm of breast (principal)
CPT/HCPCS: 77063; 77067

== ENCOUNTER → 2022-11-24 | Outpatient (CLI) | payer OTHER, SELFPAY ==
[2022-12-01 09:09] LABS: HPV APTIMA, High Risk Negative (Negative)
== END | disposition home or self-care (01) ==
LOC: LABSPEC 09:16
PROVIDERS: PCP Family Medicine; Visit Provider Nurse Practitioner Women's Health
DX: Z12.4 Encounter for screening for malignant neoplasm of cervix (principal)
CPT/HCPCS: 87624; 88175; G0145

== ENCOUNTER → 2023-07-26 | Outpatient (CLI) | payer OTHER, SELFPAY ==
--- NOTE | 2023-07-26 07:43 | BI_ITS ---
MAMMOGRAPHY - BILATERAL SCREENING REASON FOR EXAM: Female, 62 years old. Routine annual screening examination. PERTINENT HISTORY: Non-contributory. TECHNIQUE: Digital bilateral breast nori (3D mammographic acquisition) in the CC and MLO projections. 2-D mediolateral oblique (MLO) and craniocaudad (CC) views of both breasts were obtained. CAD: Full Field Digital Mammography with Computer Added Detection was performed. COMPARISON: Comparison is made with prior study June 24, 2022 and August 21, 2019. FINDINGS: Breast Composition: There are scattered areas of fibroglandular density. There are no dominant masses or suspicious calcifications. Stable 7 mm well-defined nodule in the central lateral aspect of the right breast. Stable small benign-appearing bilateral axillary lymph nodes. No other significant abnormalities are identified. There has been no significant change since the prior study. BI/SCRN MAMM (CAD)W/NORI BILAT IMPRESSION: Stable bilateral screening mammogram. Yearly follow-up mammogram recommended. (A) ASSESSMENT CATEGORY: BIRADS Category 2: Benign. A letter regarding these results will be sent to the patient by the facility within 30 days. Approximately 10% of breast cancers are not detected by mammography. A normal mammogram should not delay biopsy of a clinically suspicious abnormality. [id number] Electronically Signed: Nile Dunn MD at 10:10 EST ,
--- OUTSIDE RECORDS SUMMARY | 2023-07-26 07:49 | XMS RPT_ITS | CCD ---
Author Name Unknown Address [address] [place] [address] Organization [facility] Care Team Providers Care Office Support Specialist Name Role Phone GRETCHEN STEVENSON Primary Care Unavailable MARY HUITRON Attending Unavail able Gretchen Stevenson Primary Care Provider Unavailab Gretchen Tirado Primary Care Provider Unavailab Gretchen Tirado MD Primary Care Provider GRETCHEN STEVENSON Primary Care Unavailable SHARON COTOTN Attending Unavailable GRETCHEN STEVENSON Primary Care Unavailable PHONG BURT Referring Unavailab PHONG Reyes Admitting Unavailab GRETCHEN Tirado Primary Care Unavailable PHONG BURT Referring Unavailab PHONG Reyes Admitting Unavailab le Medications Current Medications Medication Drug Class(es) Dates Sig (Normalized) Sig (Original) Calcium Carbonate (1 source) calcium carbonat e (CALCIUM 500 ORAL) Take by mouth . 0 Active cefdinir 300 mg oral capsule (3 sources) Cephalosporin Antibacterial Start: 0 take 1 capsule by mouth twice daily cefdinir (OMNICEF) 300 MG capsule Indications: Bilateral otitis media, unspecified otitis media type Take 1 (one) capsule (300 mg total) by mouth 2 (two) times a day . 20 capsule 0 08/28/2019 Active cholecalciferol 0.025 mg oral capsule (1 source) Vitamin D take 1 capsule by mouth once daily cholecalciferol, vitamin D3, (Vitamin D3) 25 mcg (1,000 unit) capsule Take 1,000 Units by mouth daily . 0 Active cyclobenzaprine hydrochloride 10 mg oral tablet (1 source) Muscle Relaxant Start: 1 End: 1 take 1 tablet by mouth three times daily as needed for muscle spasms cyclobenzaprine (FLEXERIL) 10 MG tablet Take 1 (one) tablet (10 mg total) by mouth 3 (three) times a day as needed for muscle spasms . 30 tablet 0 02/25/2021 03/07/2021 Active fluticasone propionate 0.05 mg/actuat metered dose nasal spray (3 sources) Corticosteroid Start: 0 End: 0 take 2 spray(s) nasal route once daily fluticasone propionate (FLONASE) 50 mcg/actuation nasal spray Indications: Bilateral otitis media, unspecified otitis media type Instill 2 (two) sprays into each nostril daily . 16 g 0 08/28/2019 Active Folic Acid (3 sources) FOLIC ACID ORAL Take by mouth . 0 Active levothyroxine (3 sources) l-Thyroxine levothyroxine so dium (SYNTHROID ORAL) Take by mouth . 0 Active Methotrexate (3 sources) Folate Analog Metabolic Inhibitor METHOTREXATE ORAL Take by mouth . 0 Active methylPREDNISolone (1 source) Corticosteroid Start: 1 End: 1 methylPREDNISolone (MEDROL DOSEPACK) 4 mg tablet follow package directions . 21 tablet 0 02/25/2021 03/04/2021 Active multivitamin (multivitamin) per tablet (1 source) take 1 tablet by mouth once daily multivitamin (multivitamin) per tablet Take 1 tablet by mouth daily . 0 Active predniSONE 10 mg oral tablet (1 source) Start: 1 predniSONE (DELTASONE) 10 MG tablet 1 TABLET(S) ORAL EVERY DAY NEEDED TAKE FOR 3 5 DAYS WITH A FLARE. 0 12/30/2020 Active Problems Problem Classification Problem Date Documented Da te Episodic/Chronic Other non-traumatic joint disorders (1 source) Shoulder pain; Translations: [Pain in left shoulder] Episodic Otitis media and related conditions (1 source) Otitis media of bilateral ears; Translations: [Bilateral otitis media, unspecified otitis media type] Results Test Name Value Interpretation Reference Range Facil ity Vital Signs Date Time Vital Sign Value Performing Clinician Facjuan r lity 02-25-2021 07:59-0400 Body height 172.7 cm Sharon Cotton PROOF SORTER Work Phone: [facility] 02-25-2021 07:59-0400 Body mass index (BMI) [Ratio] 25.24 kg/m2 Sharon Cotton CNP Work Phone: [facility] 02-25-2021 07:59-0400 Body weight 75.3 kg Sharon Cotton CNP Work Phone: [facility] 08-28-2019 16:11-0500 BMI (Body Mass Index) 26.61 kg/m2 [facility] 08-28-2019 16:11-0500 Body Temperature 98.1 [degF] [facility] 08-28-2019 16:11-0500 Body weight 79.38 kg [facility] 08-28-2019 16:11-0500 BP Diastolic 68 mm[Hg] [facility] 08-28-2019 16:11-0500 BP Systolic 119 mm[Hg] [facility] 08-28-2019 16:11-0500 Height 172.7 cm [facility] 08-28-2019 16:11-0500 Pulse (Heart Rate) 86 /min [facility] 08-28-2019 16:11-0500 Pulse Oximetry 95 % [facility] 08-28-2019 16:11-0500 Respiratory Rate 16 /min [facility] Encounters Encounter Date Encounter Type Care Provider Facility Start: 02-25-2021 End: 03-01-2021 [facility] Start: 02-25-2021 End: 02-25-2021 Office outpatient new 30 minutes Sharon Cotton CNP Work Phone: [facility] Plan of Treatment Date Care Activity Detail Author Start: 03-18-2021 Influenza vaccination Sequenti al Influenza Vaccine (#1) [facility] Start: 03-18-2020 Influenza vaccination given Se quential Influenza Vaccine (#1) [facility] Start: 2012 Administration of he rpes zoster vaccine Zoster Vaccines (1 of 2) [facility] Start: 2012 Screening for malign ant neoplasm of colon [facility] Start: 2002 Screening for malign ant neoplasm of breast Mammogram [facility] Start: 1980 Hepatitis C antibody , confirmatory test Hepatitis C Screening [facility] Start: 1980 Hepatitis C screening Hepatitis C Sc reening [facility] Start: 1978 COVID-19 Vaccine (1 of 2) COVID-19 V accine (1 of 2) [facility] Start: 1977 HIV screening HIV Screening [facility] Start: 1974 Adolescent depressio n screening assessment Depression Screening (PHQ9) [facility] Start: 1974 Depression screening using PHQ-9 (Patient Health Questionnaire 9) score Depression Screening (PHQ9) [facility] Start: 1965 History and physical examination, annual for health maintenance Wellness Visit [facility] Start: 1962 Hepatitis C antibody , confirmatory test HEPATITIS C SCREENING [facility] Start: 1962 Screening for malign ant neoplasm of cervix PAP SMEAR [facility] Start: 1962 Screening mammography Mammogram [facility] Start: 1962 Tetanus vaccination [facility] Payers Date Payer Category Payer Private Health Insurance [employer] A ETNA CHOICE POS/POSII/PREMIER CARE/PREMIER CARE PLUS [id number] 2020-Present [id number] 2020 Private Health Insurance [id number] 2017 Unknown [id number] 2017 Unknown [facility] [id number] 2017-Present [id number] 2017 Unknown [facility] [id number] 2017-Present [id number] 1960 Unknown [id number] 1962 Unknown [id number] 1960 Unknown [id number] 1960 Unknown [id number] Social History Date Type Detail Facility Start: 08-28-2019 End: 02-25-2021 Tobacco smoking status NHIS Former smoker [facility] Start: 08-28-2019 End: 02-25-2021 Alcohol intake Current drinker of alcohol (finding) [facility] Start: 08-28-2019 Alcohol Comment moderate [facility] Start: 1960 Sex Assigned At Not on file [facility] Start: 08-28-2019 End: 02-25-2021 Tobacco use and exposure Never used [facility] Start: 02-25-2021 Cigarettes smoked cu rrent (pack per day) - Reported [facility] Exposure to SARS-CoV -2 (event) Not sure [facility] History of Present illness Narrative 02-25-2021 Sharon Cotton CNP - 02/25/2021 12:16 PM EDT Note Date & Type Note Facility 02-25-2021 History of Presen t illness Narrative Images from the original note were not included. Samson Zhang 1960 CC: 60 y.o. is a she with left shoulder pain Chief Complaint Patient presents with Left Shoulder - Pain . HPI: Shoulder Pain: Patient complains of left shoulder pain. She reports that this started the in August of this year. She denies any injury to the shoulder. 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 She reports that this is when the pain is the worst. She reports the pain is actually in the shoulder blade area, more in the back. She denies any decreased range of motion or decreased strength in the left shoulder or arm. She does complain of times when the arm feels heavy especially while on her computer. She also has periods of time when she is having numbness and tingling that is running down into the fingers again when she sitting and working on the computer. She states that when she is up being active and working out the shoulder and the arm do not bother her one bit. She has been taking naproxen for pain which does seem to help but she does not want to continue having to take it every day. She is seeing a chiropractor in the past who did adjust her neck but unfortunately that did not seem to correct the problem. She denies any injury to either the shoulder or the neck. PMH: No Known Allergies Current Outpatient Medications: calcium carbonate (CALCIUM 500 ORAL), Take by mouth ., Disp: , Rfl: cholecalciferol, vitamin D3, (Vitamin D3) 25 mcg (1,000 unit) capsule, Take 1,000 Units by mouth daily ., Disp: , Rfl: FOLIC ACID ORAL, Take by mouth ., Disp: , Rfl: levothyroxine sodium (SYNTHROID ORAL), Take by mouth ., Disp: , Rfl: METHOTREXATE ORAL, Take by mouth ., Disp: , Rfl: multivitamin (multivitamin) per tablet, Take 1 tablet by mouth daily ., Disp: , Rfl: predniSONE (DELTASONE) 10 MG tablet, 1 TABLET(S) ORAL EVERY DAY NEEDED TAKE FOR 3 5 DAYS WITH A FLARE., Disp: , Rfl: cefdinir (OMNICEF) 300 MG capsule, Take 1 (one) capsule (300 mg total) by mouth 2 (two) times a day . (Patient not taking: Reported on 02/25/2021 .), Disp: 20 capsule, Rfl: 0 cyclobenzaprine (FLEXERIL) 10 MG tablet, Take 1 (one) tablet (10 mg total) by mouth 3 (three) times a day as needed for muscle spasms ., Disp: 30 tablet, Rfl: 0 fluticasone propionate (FLONASE) 50 mcg/actuation nasal spray, Instill 2 (two) sprays into each nostril daily ., Disp: 16 g, Rfl: 0 methylPREDNISolone (MEDROL DOSEPACK) 4 mg tablet, follow package directions ., Disp: 21 tablet, Rfl: 0 Past Medical History: Diagnosis Date Arm numbness Arthritis Disease of thyroid gland Rheumatoid arthritis (HCC) Past Surgical History: Procedure Laterality Date CARPAL TUNNEL RELEASE Bilateral SECTION, CLASSIC SECTION, LOW TRANSVERSE TRIGGER FINGER RELEASE Right thumb Social History Socioeconomic History Marital status: Spouse name: Not on file Number of children: Not on file Years of education: Not on file Highest education level: Not on file Occupational History Not on file Tobacco Use Smoking status: Former Smoker Packs/day: 1.00 Years: 15.00 Pack years: 15.00 Smokeless tobacco: Never Used Substance and Sexual Activity Alcohol use: Yes Comment: moderate Drug use: Not Currently Sexual activity: Not on file Other Topics Concern Not on file Social History Narrative Not on file Social Determinants of Health Financial Resource Strain: Difficulty of Paying Living Expenses: Food Insecurity: Worried About Running Out of Food in the Last Year: Ran Out of Food in the Last Year: Transportation Needs: Lack of Transportation (Medical): Lack of Transportation (Non-Medical): Physical Activity: Days of Exercise per Week: Minutes of Exercise per Session: Stress: Feeling of Stress : Social Connections: Frequency of Communication with Friends and Family: Frequency of Social Gatherings with Friends and Family: Attends Catholic Services: Active Member of Clubs or Organizations: Attends Club or Organization Meetings: Marital Status: The patient's past medical history, surgical history, social history, family history, medications and allergies were reviewed with the patient today and are available in the chart for further review. ROS: Review of Systems Constitutional: Negative for activity change and fatigue. HENT: Negative for congestion, hearing loss and trouble swallowing. Eyes: Negative for visual disturbance. Respiratory: Negative for chest tightness and shortness of breath. Cardiovascular: Negative for chest pain and palpitations. Gastrointestinal: Negative for abdominal pain, diarrhea, nausea and vomiting. Endocrine: Negative for polydipsia, polyphagia and polyuria. Genitourinary: Negative for decreased urine volume, difficulty urinating and hematuria. Musculoskeletal: Positive for arthralgias. Negative for joint swelling and myalgias. Skin: Negative for color change, rash and wound. Allergic/Immunologic: Negative for immunocompromised state. Neurological: Negative for dizziness, weakness, light-headedness and numbness. Hematological: Does not bruise/bleed easily. Psychiatric/Behavioral: Negative for confusion and sleep disturbance. The patient is not nervous/anxious. PE: Physical Exam Constitutional: Appearance: She is well-developed. HENT: Head: Normocephalic. Eyes: Pupils: Pupils are equal, round, and reactive to light. Cardiovascular: Rate and Rhythm: Normal rate and regular rhythm. Pulmonary: Effort: Pulmonary effort is normal. Breath sounds: Normal breath sounds. Abdominal: General: Bowel sounds are normal. Palpations: Abdomen is soft. Musculoskeletal: General: Tenderness present. Normal range of motion. Right shoulder: Tenderness present. Arms: Cervical back: Normal range of motion and neck supple. Skin: General: Skin is warm and dry. Neurological: Mental Status: She is alert and oriented to person, place, and time. Left Shoulder Exam Tenderness Left shoulder tenderness location: posterior, middle of the shoulder blade. Range of Motion The patient has normal left shoulder ROM. Muscle Strength The patient has normal left shoulder strength. Tests Apprehension: negative Cross arm: negative Impingement: negative Drop arm: negative Sulcus: absent Other Erythema: absent Scars: absent Sensation: normal Pulse: present Imaging: Left shoulder No acute fracture or dislocation. Very mild degenerative changes in the before meals and glenohumeral joint spacing. Assessment/Plan: After examination reviewing patient x-ray images we discussed treatment options for the left shoulder. I did tell her at this point in time I believe that this is mostly soft tissue. We discussed in detail the importance of strengthening the postural muscles especially when she is sitting at a computer desk all day long. I did offer her a course of outpatient physical therapy which she politely declined at this time. We discussed different conservative treatment measures such as an oral muscle relaxer along with a oral steroid. We also discussed the use of massage for the left posterior shoulder. I am also sending her home with exercises for both the neck and the shoulder which does focus on strengthening and stabilization. She utilizes these conservative treatment measures and she continues to have her symptoms she is to contact the office and I will start her in a course of outpatient physical therapy. She does verbalize understanding is agreement with this treatment plan. Diagnosis: Problem List Items Addressed This Visit None Follow Up: No follow-ups on file. 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 It can hurt a lot.Most ear infections clear up on their own in a couple of days. Most often you will not need antibiotics. This is because many ear infections are caused by a virus. Antibiotics don't work against a virus. Regular doses of pain medicines are the best way to reduce your fever and help you feel better. Follow-up care is a owens part of your treatment and safety. Be sure to make and go to all appointments, and call your doctor if you are having problems. It's also a good idea to know your test resultsand keep a list of the medicines you take. How can you care for yourself at home? Take pain medicines exactly as directed. ? If the doctor gave you a prescription medicine for pain, take it as prescribed. ? If you are not taking a prescription pain medicine, take an [id number] medicine, such as acetaminophen (Tylenol), ibuprofen (Advil, Motrin), or naproxen (Aleve). Read and follow all instructions on the label. ? Do not take two or more pain medicines at the same time unless the doctor told you to. Many pain medicines have acetaminophen, which is Tylenol. Too much acetaminophen (Tylenol) can be harmful. Plan to take a full dose of pain reliever before bedtime. Getting enough sleep will help you get better. Try a warm, moist washcloth on the ear. It may help relieve pain. If your doctor prescribed antibiotics, take them as directed. Do not stop taking them just because you feel better. You need to take the full course of antibiotics. When should you call for help? Call your doctor now or seek immediate medical care if: You have new or increasing ear pain. You have new or increasing pus or blood draining from your ear. You have a fever with a stiff neck or a severe headache. Watch closely for changes in your health, and be sure to contact your doctor if: You have new or worse symptoms. You are not getting better after taking an antibiotic for 2 days. Where can you learn more? Log into your personal health record on https://[employer] and enter X558 in the Education box to learn more about Ear Infection (Otitis Media): Care Instructions. Current as of: February 11, 2019 Content Version: 12.3 2595-5251 [employer]. Care instructions adapted under license by your healthcare professional. If you have questions about a medical condition or this instruction, always ask your healthcare professional. [employer] disclaims any warranty or liability for your use of this information. Follow up in three to five days if unimproved. Go to the Emergency Department if symptoms worsen. documented in this encounter History of Present Illness * Mary Huitron CNP - 08/28/2019 4:11 PM EST PATIENT NAME: Samson Zhang [facility] [address] [id number] : 1960 DATE OF VISIT: 08/28/2019 #: [id number] PROVIDER: Mary Huitron CNP Chief Complaint Patient presents with Otalgia bilateral ear pain x Tuesday SUBJECTIVE 58 y.o. female presents Otalgia (bilateral ear pain x Tuesday ) Client with complaint of fatigue, body aches and ear pain onset Tuesday. Hearing is normal. She istaking Dayquil and Nyquil. Client has been taking Amoxicillin since Tuesday also twice daily. She reports that she usually gets an ear infection and ear pain with any URI. She has no HX of ear infections as a child. Otalgia There is pain in both ears. This is a new problem. The current episode started in the past 7 days. The problem occurs constantly. The problem has been waxing and waning. There has been no fever. The pain is at a severity of 8/10. The pain is moderate. Associated symptoms include coughing. Pertinentnegatives include no diarrhea, headaches, hearing loss, rash, rhinorrhea, sore throat or vomiting. Treatments tried: Dayquil Nyquil. The treatment provided significant relief. There is no history of a chronic ear infection, hearing loss or a tympanostomy tube. MEDICAL ISSUES Past Medical History: Diagnosis Date Arthritis Disease of thyroid gland There is no problem list on file for this patient. SOCIAL HISTORY Social History Socioeconomic History Marital status: Spouse name: Not on file Number of children: Not on file Years of education: Not on file Highest education level: Not on file Occupational History Not on file Social Needs Financial resource strain: Not on file Food insecurity Worry: Not on file Inability: Not on file Transportation needs Medical: Not on file Non-medical: Not on file Tobacco Use Smoking status: Former Smoker Smokeless tobacco: Never Used Substance and Sexual Activity Alcohol use: Yes Comment: moderate Drug use: Not Currently Sexual activity: Not on file Lifestyle Physical activity Days per week: Not on file Minutes per session: Not on file Stress: Not on file Relationships Social connections Talks on phone: Not on file Gets together: Not on file Attends mandaeism service: Not on file Active member of club or organization: Not on file Attends meetings of clubs or organizations: Not on file Relationship status: Not on file Other Topics Concern Not on file Social History Narrative Not on file FAMILY HISTORY No family history on file. REVIEW OF SYSTEMS Review of Systems Constitutional: Positive for fatigue. Negative for activity change, appetite change, chills, diaphoresis and fever. HENT: Positive for ear pain. Negative for congestion, hearing loss, rhinorrhea, sinus pressure, sinus pain and sore throat. Eyes: Negative for discharge and redness. Respiratory: Positive for cough. Negative for chest tightness, shortness of breath and wheezing. Cardiovascular: Negative for chest pain. Gastrointestinal: Negative for diarrhea, nausea and vomiting. Genitourinary: Normal urination. Musculoskeletal: Negative for arthralgias and myalgias. Skin: Negative for rash. Neurological: Negative for headaches. MEDICATIONS PRIOR TO VISIT Current Outpatient Medications on File Prior to Visit Medication Sig Dispense Refill FOLIC ACID ORAL Take by mouth . levothyroxine sodium (SYNTHROID ORAL) Take by mouth . METHOTREXATE ORAL Take by mouth . No current facility-administered medications on file prior to visit. ALLERGIES/INTOLERANCES No Known Allergies OBJECTIVE BP 119/68 (BP Location: Left arm, Patient Position: Sitting, BP Cuff Size: Adult) Pulse 86 Temp98.1 F (36.7 C) (Oral) Resp 16 Ht 5' 8 Wt 79.4 kg (175 lb) SpO2 95% BMI 26.61 kg/m Physical Exam Constitutional: She is oriented to person, place, and time. She appears well- developed and well-nourished. HENT: Head: Normocephalic and atraumatic. Right Ear: External ear and ear canal normal. Tympanic membrane is erythematous. Left Ear: External ear and ear canal normal. Tympanic membrane is injected. Nose: Mucosal edema present. Right sinus exhibits no maxillary sinus tenderness and no frontal sinus tenderness. Left sinus exhibits no maxillary sinus tenderness and no frontal sinus tenderness. Mouth/Throat: Uvula is midline and mucous membranes are normal. Posterior oropharyngeal erythema present. No oropharyngeal exudate or posterior oropharyngeal edema. Neck: Neck supple. Cardiovascular: Normal rate, regular rhythm and normal heart sounds. Pulmonary/Chest: Effort normal and breath sounds normal. No respiratory distress. She has no wheezes. She has no rales. Lymphadenopathy: She has cervical adenopathy. Neurological: She is alert and oriented to person, place, and time. Skin: Skin is warm and dry. Psychiatric: She has a normal mood and affect. Nursing note and vitals reviewed. PROCEDURE Procedures Results No results found for this or any previous visit (from the past 168 hour(s)). ASSESSMENT/PLAN (expressed as patient instructions): 1. Bilateral otitis media, unspecified otitis media type cefdinir (OMNICEF) 300 MG capsule fluticasone propionate (FLONASE) 50 mcg/actuation nasal spray No follow-ups on file. ADDITIONAL CLINICAL COMMENTS Client with question as to why she frequently has ear pain or infection with any URI. Discussed with client possible reasons for her to experience frequent ear pain and or infections. Recommended to follow up ENT if she continues to have problems with her ears. I changed her antibiotic with use of Amoxicillin twice daily for past 4 days without any relief of symptoms. Client did have her Flu vaccination. ORDERS PLACED THIS VISIT No orders of the defined types were placed in this encounter. MEDICATION LIST AT END OF VISIT Current Outpatient Medications Medication Sig Dispense Refill FOLIC ACID ORAL Take by mouth . levothyroxine sodium (SYNTHROID ORAL) Take by mouth . METHOTREXATE ORAL Take by mouth . cefdinir (OMNICEF) 300 MG capsule Take 1 (one) capsule (300 mg total) by mouth 2 (two) times a day . 20 capsule 0 fluticasone propionate (FLONASE) 50 mcg/actuation nasal spray Instill 2 (two) sprays into each nostril daily . 16 g 0 No current facility-administered medications for this visit. documented in this encounter Assessments Diagnosis Bilateral otitis media, unspecified otitis media type Additional Source Comments INFORMATION SOURCE (unrecogn ized section and content) DATE CREATED AUTHOR AUTHOR'S ORGANIZ ATION 03/02/2021 [facility] Reason for Visit (unrecogniz ed section and content) Reason Comments Pain FOR RECORDS PERTAINING TO PATIENTS WHO ARE OR HAVE BEEN ENROLLED IN A CHEMICAL DEPENDENCY/SUBSTANCEABUSE PROGRAM, SOME INFORMATION MAY BE OMITTED. This clinical summary was aggregated from multiple sources. Caution should be exercised in using it in the provision of clinical care. This summary normalizes information from multiple sources, and as a consequence, information in this document may materially change the coding, format and clinical context of patient data. In addition, data may be omitted in some cases. CLINICAL DECISIONS SHOULD BE BASED ON THE PRIMARY CLINICAL RECORDS. [facility] Virtual 3-D Display for Smartphones [facility]. provides no warranty or guarantee of the accuracy or completeness of information in this document.
== END | disposition home or self-care (01) ==
LOC: OPBI 07:42
PROVIDERS: PCP Family Medicine; Referring Provider Family Medicine; Visit Provider Family Medicine
DX: Z12.31 Encounter for screening mammogram for malignant neoplasm of breast (principal)
CPT/HCPCS: 77063; 77067

== ENCOUNTER 2023-10-07 08:01 | Day surgery (SDC) | payer OTHER, SELFPAY ==
[2023-10-04 12:17] VITALS: BMI 25.8
[2023-10-07 08:21] VITALS: BP 107/70; PULSE 60; RESP 18; TEMP 36.1; O2SAT 100; BMI 26.8
[2023-10-07] MEDS: Lactated Ringers 1,000 ML 15 ML IV (08:34)
--- NOTE | 2023-10-07 08:36 | HP.PCM_ITS ---
History and Physical Date of Admission: 10/07/23 Intake Vital Signs 07/14/2310:11 08/16/2412:26 Height 5 ft 9 in 5 ft 8 in Weight: 165 lb 175 lb 2 oz BMI 24.3 26.6 BP 106/62 Blood Pressure Location Rt brachial Position Sitting Respiration 17 Pulse 65 Pulse Source Monitor Temp 97.4 F L Temp Source Temporal Pulse Oximetry (%) 97 Oxygen Delivery Method room air Intake Visit Reasons: C-Scope/EGD Chief Complaint: c-scope/ EGD Is patient in pain?: No Allergies No Known Allergies Allergy (Verified 08/16/23 13:27) Medications folic acid 1 mg tablet 2 mg PO DAILY 08/24/18 [History Confirmed 08/16/23] levothyroxine 100 mcg capsule 100 mcg PO DAILY 08/24/18 [History Confirmed 08/16/23] methotrexate sodium 2.5 mg tablet 8 tab PO SA 08/24/18 [History Confirmed 08/16/23] hydroxychloroquine 200 mg tablet 200 mg PO DAILY 04/29/21 [History Confirmed 08/16/23] niacin 500 mg tablet,extended release 24 hr 500 mg PO DAILY 04/29/21 [History Confirmed 08/16/23] naproxen 250 mg tablet 250 mg PO BID PRN Pain 06/16/21 [History Confirmed 08/16/23] PFSH Medical History Alcohol use Former smoker High cholesterol History of stress test Hypothyroid Injury of head and neck Post-menopausal Rheumatoid arthritis Thyroid disease Surgical History h/o trigger thumb Hx of abdominoplasty Hx of colonoscopy Previous section S/P carpal tunnel release Family History (Updated 08/16/23 @ 13:26 by Jordana Morrell LPN) Father Heart diseaseMother Thyroid disorder Social History (Updated 07/14/23 @ 10:06 by Sara Cool) current occupational status: employed Smoking Status: Former smoker alcohol intake: current HPI HPI HPI: The patient is here for dysphagia and screening colonoscopy. Patient reports he has been having dysphagia for about 3 years. She says that it was especially bad the last 2 time she was in [place]. She says that she feels like something very sharp is sliding down her esophagus and she feels her swallow and her food going down her esophagus. She is due for screening colonoscopy as her last one was 20 years ago. She denies any abdominal pain or blood in the stool. She does not have family history of colon cancer. ROS HEENT HEENT: Yes difficulty swallowing Endo Endocrine: Yes thyroid disease Musc Musculoskeletal: Yes rheumatoid arthritis Gastro Gastrointestinal: Yes acid reflux Neuro Neurologic: Yes tingling Exam Const General: cooperative Orientation: alert and oriented x3 HENMT Head: normal to inspection Neck Neck: normal visual inspection and full ROM Chest Chest palpation & inspection: normal inspection of the chest Resp Effort & Inspection: normal respiratory effort Auscultation: clear to auscultation bilaterally Cardio Rate: regular rate Rhythm: regular rhythm GI Inspection: non-distended Palpation: soft and nontender Skin General: no rashes or lesions noted Neuro General: patient alert and patient oriented x3 Extrem General: full ROM Psych Appearance: grossly normal Mental Status: mental status grossly normal Assessment and Plan Assessment and Plan (1) Encounter for screening for malignant neoplasm of colon: Status: Acute Plan: Patient is due for screening colonoscopy. I explained endoscopy in detail to the patient. I explained the risks including but not limited to stroke or heart attack with anesthesia, perforation of the GI tract, bleeding, infection. I explained that any of these could necessitate further emergency surgery. The patient understands and all questions were answered sufficiently. The patient wishes to proceed with procedure. (2) Dysphagia: Status: Acute Qualifiers: Dysphagia type: esophageal phase Qualified Code(s): R13.19 - Other dysphagia Plan: Patient is also having dysphagia and feeling food sticking in her esophagus. I will perform an EGD at the same time as the colonoscopy with possible dilation. I discussed the increased risk of bleeding and perforation with dilation. Patient is in agreement and is willing to proceed. She is also concerned she has a hiatal hernia. Matthew Saucedo MD Pager: [facility] [address] [place] [address] [address] [place] [address] Office: I have examined the patient and the H&P has been reviewed. There are no clinical changes since date of exam.
--- NOTE | 2023-10-07 09:00 | COLBX_PTH ---
PATIENT: SAMSON BONILLA LOC: EN U#:[id number] AGE/SX: 62/F ROOM: RE10/07/[address]: Dr. Matthew Saucedo MD : 1960 BED: DIS: 10/07/2023 SPEC #: [id number] RECD: 10/07/23 10:12 STATUS: DANICA CORNELL #: [id number] KAY: 10/07/23 09:[address]: Matthew Saucedo DEPT: SURGICAL PATHOLOGY RECD BY: Noelle Thakur ENTERED: 10/07/23 11:56 SP TYPE: COLON BX OTHR DR: Dr. Gretchen Stevenson MD Tissues: A - Esophagus, NOS B - COLON BIOPSY C - Rectum, NOS Procedures: Surgery Specimen Level II Surgery Specimen Level IV Alcian Blue/PAS (control) HEADER OPERATION: Colonoscopy, EGD, Dilatation, biopsy, polypectomy PRE-OP DIAGNOSIS: Encounter for screening for malignant neoplasm of colon TISSUE SUBMITTED: A- Upper esophagus biopsy, B-Hepatic flexure polyp, C- Rectum polyp MICROSCOPIC DIAGNOSIS A. Upper esophagus, biopsy; Gastroesophageal junction with mild chronic inflammation. No evidence of goblet cell metaplasia. B. Colonic polyp at hepatic flexure; Fragments of tubular adenoma. C. Rectal polyp, biopsy; Tubular adenoma. Foci of high-grade dysplasia. See comment. Clinical correlation is suggested. AM/ 10/10/2023 COMMENT A. Alcian blue/PAS stain with matched control supports the above diagnosis. C. Foci of high-grade dysplasia range in size from 2.0mm to 4.0 mm in greatest dimension. Clinical correlation is suggested. Case has been reviewed in consultation with Dr. Clemons who concurs with the above diagnosis. IDC:SJ MICROSCOPIC DESCRIPTION Slides are reviewed. GROSS DESCRIPTION A. Received in fixative is one container labeled with the patient's name and designated Upper esophagus biopsy. The specimen consists of one irregular fragment of light chapman soft tissue that measures 0.3 x 0.3 x 0.1 cm. The specimen is totally submitted in one cassette. B. Received in fixative is one container labeled with the patient's name and designated Hepatic flexure polyp. The specimen consists of multiple irregular fragments of light chapman soft tissue that in aggregate measure 1.0 x 0.5 x 0.1 cm. The specimen is totally submitted in one cassette. C. Received in fixative is on container labeled with the patient's name and designated rectum polyp. The specimen consists of a pink-red polyp measuring 1.0 x 0.6 x 0.5 cm. The presumed base is inked. The polyp is bisected and submitted entirely in one cassette. SANDRA/m 10/07/2023 TC:0 CPT: 42341 x3 ,20744
[2023-10-07 09:20] VITALS: BP 101/70; BP 93/55; PULSE 70; RESP 16; TEMP 36.4; O2SAT 92
--- NOTE | 2023-10-07 09:28 | OP.CCLET_ITS ---
10/07/2023 Gretchen Stevenson [place] [id number] [address] Re : Upper GI endoscopy procedure for Karina Zhang Dear Dr. Stevenson This procedure was performed on Saturday, October 07, 2023. My impressions and recommendations are as follows: Impressions : - Benign-appearing esophageal stenosis. Dilated. - [place]-colored mucosa suspicious for short-segment Garcia's esophagus. Biopsied. Recommendations : - Discharge patient to home. - Resume previous diet. - Continue present medications. My findings are described in the full procedure note, which is enclosed. If I can be of further assistance, please feel free to contact me at Doctor phone number(s): , Work: . Sincerely, Matthew Saucedo MD 10/07/2023 9:27:47 AM This report has been signed electronically.
--- NOTE | 2023-10-07 09:28 | OP.EGD_ITS ---
Patient Name: Karina Zhang Procedure Date: 10/07/2023 8:40 AM Date of : 1960 Age: 62 Procedure: Upper GI endoscopy Indications: Dysphagia Providers: Matthew Saucedo MD Referring MD: Gretchen Stevenson Medicines: Propofol per Anesthesia Patient Profile: This is a 62 year old female. Refer to note in patient chart for documentation of history and physical. Complications: No immediate complications. Estimated blood loss: Minimal. Procedure: Pre-Anesthesia Assessment: - Prior to the procedure, a History and Physical was performed, and patient medications and allergies were reviewed. The patient's tolerance of previous anesthesia was also reviewed. The risks and benefits of the procedure and the sedation options and risks were discussed with the patient. All questions were answered, and informed consent was obtained. Prior Anticoagulants: The patient has taken no anticoagulant or antiplatelet agents. After reviewing the risks and benefits, the patient was deemed in satisfactory condition to undergo the procedure. After obtaining informed consent, the endoscope was passed under direct vision. Throughout the procedure, the patient's blood pressure, pulse, and oxygen saturations were monitored continuously. The Endoscope was introduced through the mouth, and advanced to the fourth part of duodenum. The upper GI endoscopy was accomplished without difficulty. The patient tolerated the procedure well. Scope In: 8:47:51 AM Scope Out: 8:54:59 AM Total Procedure Duration Time 0 hours 7 minutes 8 seconds Findings: One benign-appearing, intrinsic mild stenosis was found in the lower third of the esophagus. This stenosis measured less than one cm (in length). The stenosis was traversed. A TTS dilator was passed through the scope. Dilation with a 15-16.5-18 mm balloon dilator was performed to 18 mm. The dilation site was examined following endoscope reinsertion and showed no change. There was no resistance to the balloon through the entire esophagus. Estimated blood loss: none. Dun[place]-colored mucosa was present at the proximal esophagus. The maximum longitudinal extent of these esophageal mucosal changes was 1 cm in length. Biopsies were taken with a cold forceps for histology. Impression: - Benign-appearing esophageal stenosis. Dilated. - [place]-colored mucosa suspicious for short-segment Garcia's esophagus. Biopsied. Recommendation: - Discharge patient to home. - Resume previous diet. - Continue present medications. Procedure Code(s): --- Professional --- 20250, Esophagogastroduodenoscopy, flexible, transoral; with transendoscopic balloon dilation of esophagus (less than 30 mm diameter) Diagnosis Code(s): --- Professional --- K22.2, Esophageal obstruction K22.89, Other specified disease of esophagus R13.10, Dysphagia, unspecified CPT copyright 2021 [employer]. All rights reserved. The codes documented in this report are preliminary and upon home health speech therapist review may be revised to meet current compliance requirements. Matthew Saucedo MD 10/07/2023 9:27:47 AM This report has been signed electronically. Number of Addenda: 0 Note Initiated On: 10/07/2023 8:40 AM
[2023-10-07 09:29] VITALS: BP 101/70; BP 94/60; PULSE 65; RESP 16; O2SAT 92
[2023-10-07 09:30] VITALS: BP 101/70; BP 85/43; PULSE 75; RESP 16; O2SAT 92
--- NOTE | 2023-10-07 09:30 | OP.COLON_ITS ---
Patient Name: Karina Zhang Procedure Date: 10/07/2023 8:57 AM Date of : 1960 Age: 62 Procedure: Colonoscopy Indications: Screening for colorectal malignant neoplasm Providers: Matthew Saucedo MD Referring MD: Gretchen Stevenson Medicines: Monitored Anesthesia Care Patient Profile: This is a 62 year old female. Refer to note in patient chart for documentation of history and physical. Last Colonoscopy: more than 10 years ago. Complications: No immediate complications. Estimated blood loss: Minimal. Procedure: Pre-Anesthesia Assessment: - Prior to the procedure, a History and Physical was performed, and patient medications and allergies were reviewed. The patient's tolerance of previous anesthesia was also reviewed. The risks and benefits of the procedure and the sedation options and risks were discussed with the patient. All questions were answered, and informed consent was obtained. Prior Anticoagulants: The patient has taken no anticoagulant or antiplatelet agents. After reviewing the risks and benefits, the patient was deemed in satisfactory condition to undergo the procedure. - Prior to the procedure, a History and Physical was performed, and patient medications and allergies were reviewed. The patient's tolerance of previous anesthesia was also reviewed. The risks and benefits of the procedure and the sedation options and risks were discussed with the patient. All questions were answered, and informed consent was obtained. Prior Anticoagulants: The patient has taken no anticoagulant or antiplatelet agents. After reviewing the risks and benefits, the patient was deemed in satisfactory condition to undergo the procedure. After I obtained informed consent, the scope was passed under direct vision. Throughout the procedure, the patient's blood pressure, pulse, and oxygen saturations were monitored continuously. The pediatric colonoscope was introduced through the anus and advanced to the cecum, identified by appendiceal orifice and ileocecal valve. The ileocecal valve, appendiceal orifice, and rectum were photographed. Scope In: 8:58:26 AM Scope Withdrawal Time 0 hours 7 minutes 54 seconds Scope Out: 9:15:18 AM Total Procedure Duration Time 0 hours 16 minutes 52 seconds Findings: Two polyps were found in the rectum and hepatic flexure. The polyps were small in size. These polyps were removed with a hot snare. Resection and retrieval were complete. The exam was otherwise without abnormality on direct and retroflexion views. Impression: - Two small polyps in the rectum and at the hepatic flexure, removed with a hot snare. Resected and retrieved. - The examination was otherwise normal on direct and retroflexion views. Recommendation: - Discharge patient to home. - Resume previous diet. - Continue present medications. - Await pathology results. - Repeat colonoscopy in 5 years for surveillance based on pathology results. Procedure Code(s): --- Professional --- 93854, Colonoscopy, flexible; with removal of tumor(s), polyp(s), or other lesion(s) by snare technique Diagnosis Code(s): --- Professional --- Z12.11, Encounter for screening for malignant neoplasm of colon D12.8, Benign neoplasm of rectum D12.3, Benign neoplasm of transverse colon (hepatic flexure or splenic flexure) CPT copyright 2021 [employer]. All rights reserved. The codes documented in this report are preliminary and upon cambering machine operator review may be revised to meet current compliance requirements. Matthew Saucedo MD 10/07/2023 9:29:34 AM This report has been signed electronically. Number of Addenda: 0 Note Initiated On: 10/07/2023 8:57 AM
--- NOTE | 2023-10-07 09:30 | OP.CCLET_ITS ---
10/07/2023 Gretchen Stevenson [place] [id number] [address] Re : Colonoscopy procedure for Karina Zhang Dear Dr. Stevenson This procedure was performed on Saturday, October 07, 2023. My impressions and recommendations are as follows: Impressions : - Two small polyps in the rectum and at the hepatic flexure, removed with a hot snare. Resected and retrieved. - The examination was otherwise normal on direct and retroflexion views. Recommendations : - Discharge patient to home. - Resume previous diet. - Continue present medications. - Await pathology results. - Repeat colonoscopy in 5 years for surveillance based on pathology results. My findings are described in the full procedure note, which is enclosed. If I can be of further assistance, please feel free to contact me at Doctor phone number(s): , Work: . Sincerely, Matthew Saucedo MD 10/07/2023 9:29:34 AM This report has been signed electronically.
[2023-10-07 09:35] VITALS: BP 101/70; BP 99/71; PULSE 59; RESP 16; TEMP 36.4; O2SAT 93
[2023-10-07 09:59] VITALS: BP 101/70
== END 2023-10-07 10:06 | disposition home or self-care (01) ==
LOC: EN 08:06 → AC 08:06
PROVIDERS: PCP Family Medicine; Referring Provider Family Medicine; Visit Provider Surgery
PROC: 0DJD8ZZ Inspection of Lower Intestinal Tract, Via Natural or Artificial Opening Endoscopic (ICD-10-PCS; CPT 45378; principal; 2023-10-07 08:55)
DX: Z12.11 Encounter for screening for malignant neoplasm of colon (principal); D12.3 Benign neoplasm of transverse colon; D12.8 Benign neoplasm of rectum; K22.2 Esophageal obstruction; K22.89 Other specified disease of esophagus; K21.9 Gastro-esophageal reflux disease without esophagitis; E03.9 Hypothyroidism, unspecified; Z79.899 Other long term (current) drug therapy; Z87.891 Personal history of nicotine dependence
CPT/HCPCS: 45385; 43239; 43249; 88302; 88305; J7120; J2405

== ENCOUNTER → 2023-10-25 | Outpatient (CLI) | payer OTHER, SELFPAY ==
[2023-10-25 13:29] LABS: Absolute Lymphocyte Count 1.46 X10^3/uL (0.83-4.51); Absolute Neutrophil Count 6.3 X10^3/uL (2.0-7.7); Basophil# 0.05 X10^3/uL; Basophil% 0.6 % (0-1); Eosinophil# 0.07 X10^3/uL; Eosinophils% 0.8 % (0-5); Hematocrit 39.7 % (37-47); Lymphocyte # 1.46 X10^3/ul (0.83-4.51); Lymphocyte % 16.8 % (19-41); Mean Corp Hgb Conc 32.7 g/dL (32-36); Mean Corpuscular Hgb 31.1 pg (27.0-32.0); Mean Platelet Vol. 9.8 fl (6.2-12.0); Monocyte# 0.79 X10^3/uL; Monocyte% 9.1 % (0-10); NRBC Flagged by Analyzer 0 % (0-5); Neutrophil # 6.27 X10^3/uL (2.7-7.7); Neutrophil % 72.4 % (47-70); Platelet Count 261 K/mm3 (150-450); RBC Distribution Width CV 13.2 % (11.6-14.6); RBC Distribution Width SD 44.6 fl (35.1-43.9); Red Blood Count 4.18 M/mm3 (4.2-5.4); White Blood Count 8.7 K/mm3 (4.4-11.0)
[2023-10-25 15:44] LABS: ALB/GLOB Ratio 1.1 RATIO (0.9-2.4); AST(SGOT) 16 U/L (15-37); Alanine Aminotransfer ALT/SGPT 21 U/L (13-56); Albumin, Serum 3.9 g/dL (3.2-5.0); Alkaline Phosphatase 104 U/L (45-117); Anion Gap 7 (5-15); BUN 16 mg/dL (7-18); BUN/Creat Ratio 15.2 RATIO (10-20); Calcium,Total 9.6 mg/dL (8.5-10.1); Chloride 107 mmol/L (98-107); Creatinine, Serum 1.05 mg/dL (0.55-1.02); EST Glomerular Filtration Rate 57 mL/min (>60); Est Glom Filt Rate - Afr Amer 69 mL/min (>60); Globulin 3.7 g/dL (2.2-4.2); Glucose 128 mg/dL (74-106); Potassium 3.9 mmol/L (3.5-5.1); Protein, Total 7.6 g/dL (6.4-8.2); Sodium Level 139 mmol/L (136-145)
== END | disposition home or self-care (01) ==
LOC: LAB 13:02
PROVIDERS: PCP Family Medicine; Referring Provider Internal Medicine Rheumatology; Visit Provider Internal Medicine Rheumatology
DX: M05.70 Rheumatoid arthritis with rheumatoid factor of unspecified site without organ or systems involvement (principal); M15.9 Polyosteoarthritis, unspecified; Z79.899 Other long term (current) drug therapy
CPT/HCPCS: 36415; 80053; 85025

== ENCOUNTER → 2023-10-26 | Outpatient (CLI) | payer OTHER, SELFPAY ==
--- NOTE | 2023-10-26 16:16 | SP.MBSS_ITS ---
Modified Barium Swallow Patient Information Study Date: 10/26/23 Study Time: 13:00 Direct Billable Minutes: 73 Total Minutes procedure & reportin Diagnosis: Dysphagia R13.10 Referring Physician: Matthew Saucedo Reason for Referral: Objectively assess swallow function, assess risk for aspiration, and determine recommendations for least restrictive diet textures and compensatory strategies to improve safety of swallow. Medical History: PMH: Herniated cervical disc, C7 radiculopathy, S/p cervical spinal fusion (~2 years ago per patient), Dysphagia, S/p EGD 10/07/23 revealing esophageal stenosis (dilated) and salmon-colored mucosa suspicious for short-term segment Garcia's esophagus. Patient reports history of swallowing difficulty for approximately the last two years. On two occasions, her swallow became so painful with burning that she couldn't eat - this odynophagia occurred on two separate vacations. Most days, she feels discomfort with her swallow as if foods are caught in her chest. She at times will even regurgitate small amounts of food. Foods/drinks that trigger her swallowing difficulty include fast food, alcohol, and pop. She has been recommended for GERD medication, but has not begun taking it yet. She denies hx of PNA. Current Diet Ordered: Regular textures / Thin liquids Dentition: WNL and Natural Teeth Mental Status: WNL Respiratory Status: Oxygenating on Room Air Penetration-Aspiration Scale Penetration-Aspiration Scale: OBJECTIVE ASSESSMENT OF SWALLOW FUNCTION (QUANTITATIVE ? PER TRIAL): PENETRATION / ASPIRATION SCALE (MURILLO): 1 = does not enter airway 2 = enters airway/above vocal folds/ejected 3 = enters airway/above vocal folds/not ejected 4 = enters airway/contacts vocal folds/ejected 5 = enters airway/contacts vocal folds/not ejected 6 = enters airway/below vocal folds/ejected 7 = enters airway/below vocal folds/not ejected despite effort 8 = enters airway/below vocal folds/no effort VIDEOFLOROSCOPIC SCALE SCORE (MURILLO): Grade I = aspiration of material that has penetrated into the laryngeal vestibule, intact cough reflex Grade II = aspiration < 10 % of the bolus, intact cough reflex Grade III = aspiration of < 10 % of the bolus, reduced cough reflex or aspiration of > 10 % of the bolus, intact cough reflex Grade IV = aspiration of > 10 % of the bolus, reduced cough reflex Penetration-Aspiration Scale Score Thin Liquid via teaspoon: Result: 1= does not enter airway Thin Liquid via teaspoon Trial 2: Result: 2= enter airway/above vocal folds/ejected Thin Liquid via large single sip: cup: Result: 1= does not enter airway Thin Liquid via sequential sips: cup: Result: 2= enter airway/above vocal folds/ejected Pudding via teaspoon: Result: 1= does not enter airway Thin Liquid via sequential sips:straw: Result: 2= enter airway/above vocal folds/ejected 1/2 Cookie: Result: 1= does not enter airway Diagnosis/Impression Diagnosis: Esophageal dysphagia R13.14 Impression: Oropharyngeal swallow function grossly WNL. Mildly decreased tongue base retraction and diminished pharyngeal stripping wave with resulting trace-mild pharyngeal residues after the swallow. Trace laryngeal penetration occurred 2X with thin liquids, which fully ejected from the laryngeal vestibule after the swallow. No aspiration was observed during the study. The esophageal phase is primarily marked by? -Significant esophageal retention observed with pudding and cookie trials. Retention of pudding mostly cleared with a liquid wash. -Esophageal retention of pudding was seen in the upper and mid esophagus with retrograde flow through the UES. Figure 1. Esophageal screen of pudding. Recommendations Diet: Regular Textures and Thin Liquids Compensatory Strategies: Small Bites, Small Sips, Slow Rate, Alternate bites/solids and sips/liquids (1:1 ratio), Sitting upright and Remain sitting upright for 30 minutes after PO intake Recommend Repeat Modified Barium Swallow: No Need for Skilled Speech Therapy Services: No Recommended Referrals: GI Consult Education Completed: 1. Described result of evaluation. Comment: Additional education provided re: reflux management. [facility] recommended increasing hydration and avoiding or limiting foods/drinks high in fat, acid, carbonation, and caffeine. Pt would benefit from continued GERD education. Status Active ST Patient: Active Contact Information [facility] Therapy:: Anitha Cho M.A. [facility]? Speech-Language Pathologist?? [facility] [address]?? [place] [address]?? [email or web address]?? [phone]
== END | disposition home or self-care (01) ==
LOC: RAD 12:48
PROVIDERS: PCP Family Medicine; Referring Provider Surgery; Visit Provider Surgery
DX: R13.10 Dysphagia, unspecified (principal)
CPT/HCPCS: 74230; 92611

== ENCOUNTER → 2024-01-31 | Outpatient (CLI) | payer OTHER, SELFPAY ==
--- NOTE | 2024-01-31 08:02 | RAD_ITS ---
STUDY: X-RAY - ESOPHAGUS (BARIUM SWALLOW) WITH FLUOROSCOPY REASON FOR EXAM: Female, 63 years old. DYSPHAGIA TECHNIQUE: 31 fluoroscopic view(s) of the esophagus were obtained following swallowing of barium. FLUOROSCOPY TIME (if supplied): (48 seconds) minutes/seconds. 6.6 mgy COMPARISON: None. FINDINGS: There is no demonstrated esophageal foreign body. Minimal narrowing at the gastroesophageal junction. The patient ingested a 12 mm tablet of barium. The tablet is trapped at the gastroesophageal junction. Normal visualized aortic arch and descending thoracic aorta. Normal visualized pulmonary parenchyma. Normal visualized osseous structures of the thorax. RAD/Esophagus Dual Contrast IMPRESSION: Mild degree of narrowing at the gastroesophageal junction. The ingested 12 mm tablet of barium is trapped at the gastroesophageal junction. Electronically Signed: Nile uDnn MD at 8:50 EDT ,
== END | disposition home or self-care (01) ==
LOC: RAD 07:58
PROVIDERS: PCP Family Medicine; Referring Provider Internal Medicine Gastroenterology; Visit Provider Internal Medicine Gastroenterology
DX: R13.10 Dysphagia, unspecified (principal)
CPT/HCPCS: 74221

== ENCOUNTER → 2024-06-15 | Outpatient (CLI) | payer OTHER, SELFPAY ==
--- NOTE | 2024-06-15 14:52 | CT_ITS ---
STUDY: CT CHEST WITHOUT CONTRAST REASON FOR EXAM: Female, 63 years old. r/o CAD RADIATION DOSAGE (If Supplied By Facility): CTDIvol = ( 12.19 ) mGy, DLP = ( 219.42 ) mGycm TECHNIQUE: Transaxial imaging was performed without the administration of intravenous contrast material. Cardiac over read examination. Individualized dose optimization techniques were used for this CT. COMPARISON: No relevant priors. FINDINGS: CHEST Minimal degree of increased markings at the lung bases suggestive of atelectasis and/or mild scarring. There is no demonstrated pleural abnormality. Minimal calcification of the LAD. Normal mediastinum. Normal hilar regions. Normal unenhanced pulmonary arteries. There is atherosclerotic calcification of the aortic arch. Normal osseous structures. Small hiatal hernia. CT/Limited Chest CT Cardiac Only IMPRESSION: Minimal calcific plaque at the level of the LAD. Electronically Signed: Nile Dunn MD at 10:48 EST ,
--- NOTE | 2024-06-15 14:52 | CT_ITS ---
STUDY: CT CHEST WITHOUT CONTRAST REASON FOR EXAM: Female, 63 years old. r/o CAD RADIATION DOSAGE (If Supplied By Facility): CTDIvol = ( 12.19 ) mGy, DLP = ( 219.42 ) mGycm TECHNIQUE: Transaxial imaging was performed without the administration of intravenous contrast material. Cardiac over read examination. Individualized dose optimization techniques were used for this CT. COMPARISON: No relevant priors. FINDINGS: CHEST Minimal degree of increased markings at the lung bases suggestive of atelectasis and/or mild scarring. There is no demonstrated pleural abnormality. Minimal calcification of the LAD. Normal mediastinum. Normal hilar regions. Normal unenhanced pulmonary arteries. There is atherosclerotic calcification of the aortic arch. Normal osseous structures. Small hiatal hernia. CT/Limited Chest CT Cardiac Only IMPRESSION: Minimal calcific plaque at the level of the LAD. Electronically Signed: Nile Dunn MD at 10:48 EST ,
--- NOTE | 2024-06-22 08:07 | CA.SCORE ---
Calcium Scoring Date of Study:: 06/15/24 Indications Indications: CAD Coronary Calcium Scoring: High-resolution Computed Tomographic imaging of the chest was performed on [06/15/24 ], with particular attention paid to the coronary arteries. Images from the examination were analyzed for the presence and extent of coronary artery calcification , using coronary calcium quantification software. The patient tolerated the procedure well and there were no complications. The results of the coronary calcification analysis are provided below. Findings Coronary Artery Left Main (LM): 0 Left Anterior Descending (LAD): 0 Left Circumflex (LCX): 0 Right Coronary Artery (RCA): 0 Total Agatston Score: 0 Percentile Rankinth percentile Calcium Scoring Interpretation: Different methods to categorize the overall amount of coronary plaque. Overall amount CAC SIS Visual of coronary plaque P1 Mild -100 <2 1-2 vessels with mild amount of plaque P2 Moderate 101-300 3-4 1-2 vessels with moderate amount, 3 vessels with mild amount of plaque P3 Severe 301-999 5-7 3 vessels with moderate amount, 1 vessel with severe amount of plaque P4 Extensive >1000 >8 2-3 vessels with severe amount of plaque Conclusion: No atherosclerotic plaquing noted
== END | disposition home or self-care (01) ==
PROVIDERS: PCP Family Medicine; Referring Provider Internal Medicine Cardiovascular Disease; Visit Provider Internal Medicine Cardiovascular Disease
DX: Z13.6 Encounter for screening for cardiovascular disorders (principal); Z82.49 Family history of ischemic heart disease and other diseases of the circulatory system
CPT/HCPCS: 75571; 76380

== ENCOUNTER → 2024-06-26 | Outpatient (CLI) | payer OTHER, SELFPAY ==
--- NOTE | 2024-06-26 07:48 | ECHOD_ITS ---
Reason For Study: Abnormal EKG Procedure This was a 2D Doppler, Color Flow transthoracic echocardiogram. Myocardial strain analysis was performed in this exam to aid in the assessment of cardiac function. Exam performed in department. Left Ventricle Normal LV size. The global longitudinal strain = -15.6% (abnormal). The left ventricular ejection fraction is 50 %. There is mild global hypokinesis of the left ventricle. Right Ventricle Normal RV size. Normal systolic function. Atria Normal left atrium. Normal right atrium. Mitral Valve Normal mitral valve. Systolic anterior motion of the mitral valve. Trivial eccentric mitral valve insufficiency. Tricuspid Valve Normal tricuspid valve. Mild tricuspid valve insufficiency. Aortic Valve Trisinus/trileaflet aortic valve. Pulmonic Valve Normal pulmonic valve. Great Vessels Normal aortic root. The pulmonary artery is normal size. Inferior vena cava collapse with respiration. Pericardium/Pleural No pericardial effusion. MMode/2D Measurements & Calculations LVIDd: 4.3 cm IVSd: 0.93 cm Ao root diam: 3.1 cm LVIDs: 3.0 cm LVPWd: 1.1 cm RVDd: 3.9 cm FS: 28.9 % asc Aorta Diam: 3.1 cm LAV(MOD-bp): 41.3 ml LVAd ap4: 27.8 cm2 LAV(MOD-bp) Indexed: 21.4 ml/m2 LVLd ap4: 7.9 cm LAV(MOD-sp2): 43.8 ml EDV(MOD-sp4): 80.7 ml LAV(MOD-sp4): 35.0 ml EDV(sp4-el): 82.8 ml LVAs ap4: 17.9 cm2 LVLs ap4: 6.9 cm ESV(MOD-sp4): 38.4 ml ESV(sp4-el): 39.2 ml EF(MOD-sp4): 52.4 % EF(sp4-el): 52.7 % LVAd ap2: 26.8 cm2 SV(MOD-sp4): 42.3 ml SV(MOD-sp2): 41.4 ml LVLd ap2: 7.7 cm SI(MOD-sp4): 21.9 ml/m2 SI(MOD-sp2): 21.4 ml/m2 EDV(MOD-sp2): 76.8 ml EDV(sp2-el): 79.3 ml LVAs ap2: 17.0 cm2 LVLs ap2: 6.8 cm ESV(MOD-sp2): 35.4 ml ESV(sp2-el): 36.2 ml EF(MOD-sp2): 53.9 % SV(sp4-el): 43.7 ml LA dimension(2D): 3.7 cm LA A4 area: 14.4 cm2 RA A4 area: 15.5 cm2 TAPSE: 2.2 cm Time Measurements MV dec time: 0.18 sec Doppler Measurements & Calculations MV E max taye: 72.8 cm/sec Lat Peak E' Taye: 9.5 cm/sec Med Peak E' Taye: 6.5 cm/sec MV A max taye: 73.7 cm/sec E/E' lat: 7.6 E/E' med: 11.2 MV E/A: 0.99 MV V2 max: 84.2 cm/sec MV P1/2t max taye: 75.2 cm/sec Ao V2 max: 136.3 cm/sec MV max P.8 mmHg MV P1/2t: 62.9 msec Ao max P.4 mmHg MV V2 mean: 42.2 cm/sec Ao V2 mean: 94.4 cm/sec MV mean P.87 mmHg MV dec slope: 350.5 cm/sec2 Ao mean P.1 mmHg MV V2 VTI: 29.1 cm MVA(P1/2t): 3.5 cm2 Ao V2 VTI: 31.5 cm AV (velocity ratio): 0.73 LV V1 max: 102.8 cm/sec PA V2 max: 79.2 cm/sec TR max taye: 220.8 cm/sec LV V1 max P.2 mmHg TR max P.5 mmHg LV V1 mean P.3 mmHg LV V1 mean: 70.3 cm/sec LV V1 VTI: 23.1 cm ECHO/Echo Complete Interpretation Summary Normal LV size. The global longitudinal strain = -15.6% (abnormal). The left ventricular ejection fraction is 50 %. There is mild global hypokinesis of the left ventricle. Mild tricuspid valve insufficiency. Ordering Physician: Gretchen Stevenson Referring Physician: Eben Beard Performed By: Tim Hannon RCS
== END | disposition home or self-care (01) ==
LOC: CVS 07:47
PROVIDERS: PCP Family Medicine; Referring Provider Internal Medicine Cardiovascular Disease; Visit Provider Internal Medicine Cardiovascular Disease
DX: R94.31 Abnormal electrocardiogram [ECG] [EKG] (principal)
CPT/HCPCS: 93306

== ENCOUNTER → 2024-08-08 | Outpatient (CLI) | payer OTHER, SELFPAY ==
--- NOTE | 2024-08-08 07:24 | BI_ITS ---
MAMMOGRAPHY - BILATERAL SCREENING REASON FOR EXAM: Female, 63 years old. Routine annual screening examination. PERTINENT HISTORY: Non-contributory. TECHNIQUE: Digital bilateral breast nori (3D mammographic acquisition) in the CC and MLO projections. 2-D mediolateral oblique (MLO) and craniocaudad (CC) views of both breasts were obtained. CAD: Full Field Digital Mammography with Computer Added Detection was performed. COMPARISON: Comparison is made with prior study dated July 26, 2023 and June 24, 2022. FINDINGS: Breast Composition: There are scattered areas of fibroglandular density. There are no dominant masses or suspicious calcifications. Stable 7 mm well-defined nodule in the central lateral aspect of the right breast. Stable bilateral axillary lymph nodes. No other significant abnormalities are identified. There has been no significant change since the prior study. BI/SCRN MAMM (CAD)W/NORI BILAT IMPRESSION: Stable bilateral screening mammogram. Yearly follow-up mammogram recommended. (A) ASSESSMENT CATEGORY: BIRADS Category 2: Benign. A letter regarding these results will be sent to the patient by the facility within 30 days. Approximately 10% of breast cancers are not detected by mammography. A normal mammogram should not delay biopsy of a clinically suspicious abnormality. [id number] Electronically Signed: Nile Dunn MD at 10:41 EST ,
== END | disposition home or self-care (01) ==
LOC: OPBI 07:23
PROVIDERS: PCP Family Medicine; Referring Provider Family Medicine; Visit Provider Family Medicine
DX: Z12.31 Encounter for screening mammogram for malignant neoplasm of breast (principal)
CPT/HCPCS: 77063; 77067

== ENCOUNTER 2024-11-01 06:54 | Day surgery (SDC) | payer OTHER, SELFPAY ==
--- NOTE | 2024-10-25 16:15 | PAT.ANE_ITS ---
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 When Was Last Pacemaker Check QUESTION #4 FULL TEXT: You/Your Family Experience fever (hyperthermia) with Anesthesia Last Oral Intake Last Oral intake: Last Oral Intake NPO since Meds taken in AM with sips of water? Meds patient instructed to take am of surgery PONV PONV - assistant professor nurse education: PONV - assistant professor nurse education Female Yes 10/25/24 13:55 HX of Motion Sickness No 10/25/24 13:55 HX of N/V After Surgery Yes 10/25/24 13:55 Non-Smoker Yes 10/25/24 13:55 Duration of Surgery greater No 10/25/24 13:55 than 60 minutes Number of Risk Factors 3 10/25/24 13:55 PONV Score Moderate Risk 10/25/24 13:55 Height & Weight Height & Weight: Anesthesia: Height & Weight Height 5 ft 8 in 10/24/24 07:53 Respiratory Assessment Respiratory Assessment - assistant professor nurse education: Respiratory Tract Infection Hx - assistant professor nurse education Hx Respiratory Tract Infection No 10/25/24 13:55 STOP Sleep Apnea STOP Sleep Apnea - assistant professor nurse education: STOP Sleep Apnea - assistant professor nurse education Hx Hypertension No 10/25/24 13:55 Hx Sleep Apnea No: SLEEP STUDY F/U 10/2610/25/24 13:55 CPAP Yes 10/07/23 09:20 BIPAP Do you snore loudly (louder No 10/25/24 13:55 than talking or can be heard Do you often feel tired/ No 10/25/24 13:55 fatigued/ sleepy during daytime? Has anyone observed you stop No 10/25/24 13:55 breathing during sleep? STOP Results Negative 10/25/24 13:55 QUESTION #5 FULL TEXT : Do you snore loudly (louder than talking or can be heard through closed doors)? 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 Specify any problems Hx of Preganancy in last 3 N/A 10/25/24 13:55 Months Nurse Filling Out Transfusion NBUCHER 10/25/24 13:55 & Questions: Date: 10/25/24 10/25/24 13:55 Time: 13:56 10/25/24 13:55 Patient unable to answer at this time (ie. confused, unrespo /Reproduction History /Reproductive History - assistant professor nurse education: /Reproductive Hx- assistant professor nurse education Hx Now No 10/25/24 13:55 Gestational Age (in weeks): EDC: Hx Hx Para Hx Section SAB No 10/25/24 13:55 PFSH Medical History (Updated 10/25/24 @ 13:57 by Lana Quintana) PONV (postoperative nausea and vomiting) Vitamin D deficiency Esophageal stenosis Hypertriglyceridemia Anxiety Wears glasses History of steroid therapy Back pain Gastric reflux Post-menopausal Alcohol use Thyroid disease High cholesterol Injury of head and neck Former smoker History of stress test Rheumatoid arthritis Hypothyroid Home Medications ?Medication ?Instructions ?Recorded ?Last Taken ?Type folic acid 1 mg tablet 2 mg PO DAILY 08/24/18 Unkno wn History methotrexate sodium 2.5 mg tablet 8 tab PO SA 08/24/18 Unknown History levothyroxine 112 mcg tablet 112 mcg PO DAILY 10/04/23 Unknown History (Synthroid) prednisone 10 mg tablet 10 mg PO PRN RA 10/04/23 Unk nown History adalimumab-adaz 40 mg/0.4 mL 40 mg subcut Q2W 10/24/24 Unknown History subcutaneous pen injector (Hyrimoz(CF) Pen) calcium carbonate 600 mg PO QDAY 10/24/24 Unkn own History cholecalciferol (vitamin D3) 10 10 mcg PO QDAY 5 Unknown History mcg (400 unit) capsule hydroxychloroquine 200 mg tablet 200 mg PO DAILY 10/24 Unknown History lvhwukli-wamotmv-weof-lutein tablet 1 tab PO DAILY 04/11 Unknown History naproxen 250 mg tablet 500 mg PO BID PRN Pain 10/24 Unknown History pantoprazole 40 mg tablet,delayed 40 mg PO QDAY #90 ta bs 10/24/24 Unknown Rx release Allergy/AdvReac Type Severity Reaction Status Date / Time No Known Allergies Allergy Verified 10/25/24 13:53 Family History Father Heart disease CVA (cerebral vascular accident) NEVA (obstructive sleep apnea) Mother Thyroid disorder Sister Kidney disease Thyroid disorder Surgical History (Updated 10/25/24 @ 13:57 by Lana Quintana) History of esophagogastroduodenoscopy (EGD) Hx of fusion of cervical spine Hx of colonoscopy h/o trigger thumb Hx of abdominoplasty Previous section S/P carpal tunnel release Social History current occupational status: employed Smoking Status: Former smoker alcohol intake: current substance use type: does not use caffeine: Yes Audit: Pertinent Findings Pertinent Findings EKG Perinent findings: 05/25/2024. Sinus rhythm?consider old anterior infarct. Echo (EF%) pertinent findings: June 26, 2024. Ejection fraction of 50%. Mild global hypokinesis. No aortic stenosis noted. Consult pertinent findings: 05/25/2024. Dr. Beard. 1. Family history of early coronary artery hihxdzt-ymzoo-jjmmgz had early coronary disease. Patient is also a remote smoker. Will do calcium scoring and if it is above 100 we will start on statin therapy. 2. Chest pain?acute-this seems to be a pulling sensation. She does have some anxiety secondary to her family history of coronary disease. Await calcium scoring. 3. 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 Will follow-up with echo. (See above). Recommendation Anesthesia Recommendation Anesthesia recommendation: OPTIMIZED for anesthesia
[2024-11-01] VITALS (9 sets, daily range): BP systolic 87–112; BP diastolic 45–76; PULSE 49–62; RESP 16; TEMP 36.1–36.6; O2SAT 90–99; BMI 26.8
--- NOTE | 2024-11-01 07:37 | PCM.PRE.AN2 ---
ASA Classification* ASA Classification ASA Classification: 2 Assessment & Plan Anesthesia* Anesthesia Assessment Anesthesia Assessment: Discussed sedation and/or anesthesia options, risks, benefits, and alternatives with patient/parents/legal guardian/POA. Questions invited. The patient/parents/legal guardian/POA seems to understand and agrees to proceed with anesthesia plan. Reviewed the physical assessment, medical history, allergy history and patient home medications list prior to surgery/procedure/anesthetic and documented any changes. Performed airway and anesthesia risk assessments. Anesthesia Type Anesthesia Type: MAC History Source History Obtained from:: Patient and Chart Anesthesia Focused Assessment* Temperature: 97.0 F Pulse Rate: 59 Blood Pressure: 112/62 Respiratory Rate: 16 Pulse Ox: 99 Oxygen Delivery Method: Room Air Airway Assessment Mouth opens: >3 cm Mallampati Score: IV Teeth Condition: Caps/Crowns (Patient has a crown right lower molar. It is tight.) and Chipped/Broken (Patient has a chipped left lower molar.) Neck Range of motion (ROM): Full ROM Focused Labs Anesthesia Preop lab: CBC WBC 8.7 K/mm3 (4.4-11.0) 10/25/23 13:04 10/25/23 RBC 4.18 M/mm3 (4.2-5.4) L 10/25/23 13:04 10/25/23 Hgb 13.0 g/dL (12.0-15.0) 10/25/23 13:04 10/25/23 Hct 39.7 % (37-47) 10/25/23 13:04 10/25/23 Plt Count 261 K/mm3 (150-450) 10/25/23 13:04 10/25/23 CHEMISTRY Potassium 3.9 mmol/L (3.5-5.1) 10/25/23 13:04 10/25/23 Sodium 139 mmol/L (136-145) 10/25/23 13:04 10/25/23 Magnesium 2.1 mg/dL (1.6-2.6) 06/19/21 16:51 06/19/21 BUN 16 mg/dL (7-18) 10/25/23 13:04 10/25/23 Creatinine 1.05 mg/dL (0.55-1.02) H 10/25/23 13:04 10/25/23 Glucose 128 mg/dL (74-106) H 10/25/23 13:04 10/25/23 POC Glucose 86 mg/dL (70-110) 06/23/21 07:11 06/23/21 TSH 2.40 uIU/mL (0.358-3.74) 06/19/21 16:51 06/19/21 COAG Pre-Assessment Diagnosis/Proposed Procedure Planned Operative Procedure(s): FLEX SIG Anesthesia History Anesthesia History - racking technician: Anesthesia History - racking technician Hx Hospitalization No 10/25/24 13:55 Any Problems With Anesthesia Yes: PONV 10/25/24 13:55 Cholinesterase deficiency No 10/25/24 13:55 You/Your Family Experience No 10/25/24 13:55 fever (hyperthermia) with Relationship Recent Exposure to Contagious No 11/01/24 07:09 Disease Does patient have nerve No 10/25/24 13:55 stimulator Patient instructed to have device shut off --Does patient have Pacemaker No 11/01/24 07:09 or ICD? When Was Last Pacemaker Check QUESTION #4 FULL TEXT: You/Your Family Experience fever (hyperthermia) with Anesthesia Last Oral Intake Last Oral intake: Last Oral Intake NPO since 18:30 11/01/24 07:09 Meds taken in AM with sips of Yes 11/01/24 07:09 water? Meds patient instructed to see medlist 11/01/24 07:09 take am of surgery Any additional information?: Yes Meds taken in AM with sips of water?: Yes PONV PONV - racking technician: PONV - racking technician Female Yes 10/25/24 13:55 HX of Motion Sickness No 10/25/24 13:55 HX of N/V After Surgery Yes 10/25/24 13:55 Non-Smoker Yes 10/25/24 13:55 Duration of Surgery greater No 10/25/24 13:55 than 60 minutes Number of Risk Factors 3 10/25/24 13:55 PONV Score Moderate Risk 10/25/24 13:55 Height & Weight Height & Weight: Anesthesia: Height & Weight Height 5 ft 8 in 11/01/24 07:09 Weight: 80 kg 11/01/24 07:09 Body Mass Index (BMI) 26.8 11/01/24 07:09 Respiratory Assessment Respiratory Assessment - racking technician: Respiratory Tract Infection Hx - racking technician Hx Respiratory Tract Infection No 10/25/24 13:55 STOP Sleep Apnea STOP Sleep Apnea - racking technician: STOP Sleep Apnea - racking technician Hx Hypertension No 10/25/24 13:55 Hx Sleep Apnea No: SLEEP STUDY F/U 10/2610/25/24 13:55 CPAP Yes 10/07/23 09:20 BIPAP Do you snore loudly (louder No 10/25/24 13:55 than talking or can be heard Do you often feel tired/ No 10/25/24 13:55 fatigued/ sleepy during daytime? Has anyone observed you stop No 10/25/24 13:55 breathing during sleep? STOP Results Negative 10/25/24 13:55 QUESTION #5 FULL TEXT : Do you snore loudly (louder than talking or can be heard through closed doors)? 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 Specify any problems Hx of Preganancy in last 3 N/A 10/25/24 13:55 Months Nurse Filling Out Transfusion NBUCHER 10/25/24 13:55 & Questions: Date: 10/25/24 10/25/24 13:55 Time: 13:56 10/25/24 13:55 Patient unable to answer at this time (ie. confused, unrespo /Reproduction History /Reproductive History - racking technician: /Reproductive Hx- racking technician Hx Now No 10/25/24 13:55 Gestational Age (in weeks): EDC: Hx Hx Para Hx Section SAB No 10/25/24 13:55 PFSH Medical History PONV (postoperative nausea and vomiting) Vitamin D deficiency Esophageal stenosis Hypertriglyceridemia Anxiety Wears glasses History of steroid therapy Back pain Gastric reflux Post-menopausal Alcohol use Thyroid disease High cholesterol Injury of head and neck Former smoker History of stress test Rheumatoid arthritis Hypothyroid Home Medications ?Medication ?Instructions ?Recorded ?Last Taken ?Type folic acid 1 mg tablet 2 mg PO DAILY 08/24/18 Unknown History methotrexate sodium 2.5 mg tablet 8 tab PO SA 08/24/18 Unknown History levothyroxine 112 mcg tablet 112 mcg PO DAILY 10/04/23 11/01/24 History (Synthroid) prednisone 10 mg tablet 10 mg PO PRN RA 10/04/23 Unknown History adalimumab-adaz 40 mg/0.4 mL 40 mg subcut Q2W 10/24/24 Unknown History subcutaneous pen injector (Hyrimoz(CF) Pen) calcium carbonate 600 mg PO QDAY 10/24/24 Unknown History cholecalciferol (vitamin D3) 10 10 mcg PO QDAY 10/24/24 Unknown History mcg (400 unit) capsule hydroxychloroquine 200 mg tablet 200 mg PO DAILY 10/24/24 Unknown History ireeexpj-qatsbvh-gqot-lutein tablet 1 tab PO DAILY 10/24/24 Unknown History naproxen 250 mg tablet 500 mg PO BID PRN Pain 10/24/24 Unknown History pantoprazole 40 mg tablet,delayed 40 mg PO QDAY #90 tabs 10/24/24 11/01/24 Rx release Allergy/AdvReac Type Severity Reaction Status Date / Time No Known Allergies Allergy Verified 11/01/24 07:08 Family History Father Heart disease CVA (cerebral vascular accident) NEVA (obstructive sleep apnea) Mother Thyroid disorder Sister Kidney disease Thyroid disorder Surgical History History of esophagogastroduodenoscopy (EGD) Hx of fusion of cervical spine Hx of colonoscopy h/o trigger thumb Hx of abdominoplasty Previous section S/P carpal tunnel release Social History current occupational status: employed Smoking Status: Former smoker alcohol intake: current substance use type: does not use caffeine: Yes Review of Systems (Anesthesia) ROS Narrative System reviewed and no additional complaints, except as documented.
--- NOTE | 2024-11-01 08:00 | COLBX_PTH ---
PATIENT: SAMSON BONILLA LOC: EN U#:[id number] AGE/SX: 63/F ROOM: RE11/01/[address]: Dr. Skyler Escobedo DO : 1960 BED: DIS: 11/01/2024 SPEC #: [id number] RECD: 11/01/24 09:52 STATUS: DANICA CORNELL #: [id number] KAY: 11/01/24 08:[address]: Skyler Escobedo DEPT: SURGICAL PATHOLOGY RECD BY: Tai Urias ENTERED: 11/01/24 11:31 SP TYPE: COLON BX OTHR DR: MD Dr. Gretchen Appiah MD Tissues: A - Sigmoid colon biopsy Procedures: Surgery Specimen Level IV HEADER OPERATION: Flexible sigmoidoscopy with polyp PRE-OP DIAGNOSIS: Personal history of other colon polyps, odynophagia, dysphagia, heartburn, rectal bleeding TISSUE SUBMITTED: A- Rectal sigmoid polyp MICROSCOPIC DIAGNOSIS A. Colon, rectal-sigmoid, polyp, biopsy: * Tubular adenoma MICROSCOPIC DESCRIPTION Slides are reviewed. GROSS DESCRIPTION A. Received in formalin in a container labeled with the patient's name, date of , and rectal sigmoid polyp is a 0.9 x 0.3 x 0.2 cm strip of chapman-pink mucosal tissue with a 0.8 x 0.7 x 0.4 cm chapman-pink polyp. The polyp margin is inked black, and it is trisected. Entirely submitted in A1. [facility] 11/02/2024 CPT:43947
--- NOTE | 2024-11-01 08:33 | PCM.HP.STD ---
HPI - General General Date of Admission: 11/01/24 Date of Service: 11/01/24 HPI Narrative SAMSON BONILLA, is a 63 F who presents to the office today for c-scope/ EGD EGD & COLONOSCOPY 10/07/2023 One benign-appearing, intrinsic mild stenosis was found in the lower third of the esophagus. This stenosis measured less than one cm (in length). The stenosis was traversed. A TTS dilator was passed through the scope. Dilation with a 15-16.5-18 mm balloon dilator was performed to 18 mm. The dilation site was examined following endoscope reinsertion and showed no change. There was no resistance to the balloon through the entire esophagus. A. Upper esophagus, biopsy; Gastroesophageal junction with mild chronic inflammation. No evidence of goblet cell metaplasia. B. Colonic polyp at hepatic flexure; Fragments of tubular adenoma. C. Rectal polyp, biopsy; Tubular adenoma. Foci of high-grade dysplasia. See comment. Clinical correlation is suggested. A. Alcian blue/PAS stain with matched control supports the above diagnosis. C. Foci of high-grade dysplasia range in size from 2.0mm to 4.0 mm in greatest dimension. Clinical correlation is suggested. Esophagram 01/31/2024 Mild degree of narrowing at the gastroesophageal junction. The ingested 12 mm tablet of barium is trapped at the gastroesophageal junction. - scraping esophageal pain through the esophagus - 02/24 esophageal pain - symptoms began 2 years ago - like swallowing a razor blade - symptoms were 2-3d a week and now symptoms are daily - reports waking at HS with belching and can feel esophageal discomfort - denies any N/V - denies any overt esophageal obstruction but does complain of food traversing the esophagus slowly with significant pain - Naproxen, she has decreased use since starting Hyrimoz July 2024 - Prednisone, denies nay since July 2024 - was taking intermittently previously for RA - Hyrimoz for RA - started this July 2024 - esophageal pain is no worse since starting Hyrimoz - she c/o occasional HB - she rarely takes pantoprazole 20mg daily - arches her back at times - she denies any family h/o colon CA - denies any change in bowel habits - she does experience occasional rectal bleeding [facility] [place] Medical History PONV (postoperative nausea and vomiting) Vitamin D deficiency Esophageal stenosis Hypertriglyceridemia Anxiety Wears glasses History of steroid therapy Back pain Gastric reflux Post-menopausal Alcohol use Thyroid disease High cholesterol Injury of head and neck Former smoker History of stress test Rheumatoid arthritis Hypothyroid Home Medications ?Medication ?Instructions ?Recorded ?Last Taken ?Type folic acid 1 mg tablet 2 mg PO DAILY 08/24/18 Unknown History methotrexate sodium 2.5 mg tablet 8 tab PO SA 08/24/18 Unknown History levothyroxine 112 mcg tablet 112 mcg PO DAILY 10/04/23 11/01/24 History (Synthroid) prednisone 10 mg tablet 10 mg PO PRN RA 10/04/23 Unknown History adalimumab-adaz 40 mg/0.4 mL 40 mg subcut Q2W 10/24/24 Unknown History subcutaneous pen injector (Hyrimoz(CF) Pen) calcium carbonate 600 mg PO QDAY 10/24/24 Unknown History cholecalciferol (vitamin D3) 10 10 mcg PO QDAY 10/24/24 Unknown History mcg (400 unit) capsule hydroxychloroquine 200 mg tablet 200 mg PO DAILY 10/24/24 Unknown History qhdoqvev-zqtrzma-afqr-lutein tablet 1 tab PO DAILY 10/24/24 Unknown History naproxen 250 mg tablet 500 mg PO BID PRN Pain 10/24/24 Unknown History pantoprazole 40 mg tablet,delayed 40 mg PO QDAY #90 tabs 10/24/24 11/01/24 Rx release Allergy/AdvReac Type Severity Reaction Status Date / Time No Known Allergies Allergy Verified 11/01/24 07:08 Family History Father Heart disease CVA (cerebral vascular accident) NEVA (obstructive sleep apnea) Mother Thyroid disorder Sister Kidney disease Thyroid disorder Surgical History History of esophagogastroduodenoscopy (EGD) Hx of fusion of cervical spine Hx of colonoscopy h/o trigger thumb Hx of abdominoplasty Previous section S/P carpal tunnel release Social History current occupational status: employed Smoking Status: Former smoker alcohol intake: current substance use type: does not use caffeine: Yes ROS Constitutional Constitutional: Denies fatigue, fever(s), poor appetite, weight gain or weight loss Gastrointestinal Gastrointestinal: Denies belching, bloating, change in bowel habits, change in stool character, chewing difficulty, coffee ground emesis, constipation, cramping, diarrhea, dyspepsia, dysphagia, early satiety, excessive flatus, fecal incontinence, heartburn, hematemesis, hematochezia, hemorrhoids, loose stools, melena, nausea, odynophagia, rectal bleeding, tenesmus, vomiting or weight changes Vital Signs Vital Signs Vital Signs: 11/01/24 07:09 11/01/24 07:09 11/01/24 07:44 Temperature 97.0 F L 97.0 F L Temperature Source Temporal Pulse Rate 59 L 59 L Respiratory Rate 16 16 Respiratory Pattern Normal Blood Pressure 112/62 112/62 Blood Pressure Mean 78 Blood Pressure Source Monitor Blood Pressure Position Semi-Fowlers Blood Pressure Location Left Arm Pulse Ox 99 99 Oxygen Delivery Method Room Air Room Air Weight Weight: 176 lb 5.917 oz Body Mass Index (BMI) 26.8 Physical Exam Const alert, oriented x3, no apparent distress and healthy appearing General Appearance: cooperative GI normal to inspection, nondistended, normoactive bowel sounds, soft to palpation, non-tender and non-distended Percussion: normal to percussion Rectal Exam: deferred Assessment & Plan Assessment/Plan (1) Personal history of other colon polyps: (2) Odynophagia: (3) Dysphagia: QUALIFIERS: Dysphagia type: esophageal phase Qualified Code(s): R13.19 - Other dysphagia PLAN: Assessment and Plan Assessment and Plan (1) Odynophagia: Status: Acute (2) Heartburn: Status: Acute (3) Rectal bleeding: Status: Acute (4) Personal history of other colon polyps: Status: Acute Plan 63-year-old female presents for initial consultation with complaints of a odynophagia. Symptoms began 2 years ago and have become more frequent. EGD was performed September 2023 and revealed benign-appearing esophageal stenosis in the lower third of the esophagus, this was dilated. Due to ongoing symptoms she completed an esophagram January 2024 and this revealed trapping of the barium tablet at the GEJ. She reports experiencing intermittent heartburn without any overt esophageal obstruction with p.o. intake. She complains of food traversing the esophagus slowly with sharp razor blade painful swallowing. She also complains of PND and arching her back with swallowing. She was previously on intermittent use of prednisone for rheumatoid arthritis and she discontinued this July 2024 when starting Hyrimoz. Previous endoscopy did not reveal Devora. I have started her on PPI daily for 12 weeks and we will plan to repeat EGD with esophageal manometry if symptoms are persisting. Colonoscopy was performed September 2023 and revealed a small rectal tubular adenoma with high-grade dysplasia. She denies any family history of colon cancer. She does experience occasional BRBPR. I have recommended proceeding with a sigmoidoscopy at this time. She will follow-up in the office in 12 weeks. Patient Instructions: Pantoprazole 40mg once daily Sigmoidoscopy now Follow-up in 12 weeks and will proceed with EGD and esophageal manometry if symptoms are persisting Plan Details Follow Up: 12 Weeks
--- NOTE | 2024-11-01 09:06 | PCM.POST.ANE ---
Anesthesia: Postop Eval I Current Vital Signs Temperature: 97 F Pulse Rate: 57 Blood Pressure: 87/45 Respiratory Rate: 16 Pulse Ox: 95 Oxygen Delivery Method: Room Air Assessment Airway patent: Yes Spontaneous unlabored respirations: Yes Mental status: Asleep nausea: No Vomiting: No Anesthesia Complication: No Fluid Hydration Crystalloid volume administer (ml): 35 Total IV fluid infused: 35 Progress Note Anesthesia document: Postop Eval 1 completed: Yes
--- NOTE | 2024-11-01 09:08 | OP.CCLET_ITS ---
11/01/2024 Gretchen Stevenson [id number] [facility] [address] [address] Re : Flexible Sigmoidoscopy procedure for Karina Zhang Dear Dr. Stevenson This procedure was performed on October. My impressions and recommendations are as follows: Impressions : - Preparation of the colon was poor. - No specimens collected. Recommendations : - Use fiber, for example Citrucel, Fibercon, Konsyl or Metamucil. My findings are described in the full procedure note, which is enclosed. If I can be of further assistance, please feel free to contact me at . Sincerely, Skyler Escobedo, 11/01/2024 9:07:37 AM This report has been signed electronically.
--- NOTE | 2024-11-01 09:08 | OP.FLEXSIG_ITS ---
Patient Name: Karina Zhang Procedure Date: 11/01/2024 8:38 AM Date of : 1960 Age: 63 Procedure: Flexible Sigmoidoscopy Indications: Surveillance: Personal history of incomplete removal of large sessile adenoma on last colonoscopy (less than 1 year ago) Providers: Skyler Escobedo DO Medicines: Monitored Anesthesia Care Patient Profile: This is a 63 year old female. Refer to note in patient chart for documentation of history and physical. Last Colonoscopy: 1 year ago. Complications: No immediate complications. Procedure: Pre-Anesthesia Assessment: - Prior to the procedure, a History and Physical was performed, and patient medications and allergies were reviewed. The patient is competent. The risks and benefits of the procedure and the sedation options and risks were discussed with the patient. All questions were answered and informed consent was obtained. Patient identification and proposed procedure were verified by the physician in the pre-procedure area. Mental Status Examination: alert and oriented. Airway Examination: normal oropharyngeal airway and neck mobility. Respiratory Examination: clear to auscultation. CV Examination: normal. Prophylactic Antibiotics: The patient does not require prophylactic antibiotics. Prior Anticoagulants: The patient has taken no anticoagulant or antiplatelet agents. ASA Grade Assessment: II - A patient with mild systemic disease. After reviewing the risks and benefits, the patient was deemed in satisfactory condition to undergo the procedure. The anesthesia plan was to use monitored anesthesia care (MAC). Immediately prior to administration of medications, the patient was re-assessed for adequacy to receive sedatives. The heart rate, respiratory rate, oxygen saturations, blood pressure, adequacy of pulmonary ventilation, and response to care were monitored throughout the procedure. The physical status of the patient was re-assessed after the procedure. After obtaining informed consent, the endoscope was passed under direct vision. Throughout the procedure, the patient's blood pressure, pulse, and oxygen saturations were monitored continuously. The Colonoscope was introduced through the anus and advanced to the sigmoid colon. After obtaining informed consent, the endoscope was passed under direct vision. Throughout the procedure, the patient's blood pressure, pulse, and oxygen saturations were monitored continuously.The flexible sigmoidoscopy was accomplished without difficulty. The patient tolerated the procedure well. The quality of the bowel preparation was poor. Scope In: 8:51:09 AM Scope Out: 8:56:48 AM Total Procedure Duration Time 0 hours 5 minutes 39 seconds Findings: A 12 mm polyp was found in the recto-sigmoid colon. The polyp was sessile. The polyp was removed with a hot snare. Resection and retrieval were complete. Verification of patient identification for the specimen was done. Estimated blood loss was minimal. Impression: - Preparation of the colon was poor. - No specimens collected. Recommendation: - Use fiber, for example Citrucel, Fibercon, Konsyl or Metamucil. Procedure Code(s): --- Professional --- 02487, LT, Sigmoidoscopy, flexible; with removal of tumor(s), polyp(s), or other lesion(s) by snare technique CPT copyright 2021 [employer]. All rights reserved. The codes documented in this report are preliminary and upon talent buyer review may be revised to meet current compliance requirements. Skyler Escobedo DO 11/01/2024 9:07:37 AM This report has been signed electronically. Number of Addenda: 0 Note Initiated On: 11/01/2024 8:38 AM
--- NOTE | 2024-11-01 14:30 | PCM.POSTANE2 ---
Anesthesia Postop Eval I Sum Postop Eval Completion status Anesthesia document: Postop Eval 1 completed: Yes Anesthesia Postop Eval I Summary Anesthesia Postop Eval I Summary: Anesthesia Postop Eval I: Assessment Summary Airway patent Yes 11/01/24 09:07 [email or web address] Spontaneous unlabored Yes 11/01/24 09:07 [email or web address] respirations Mental status Asleep 11/01/24 09:07 [email or web address] nausea No 11/01/24 09:07 [email or web address] Vomiting No 11/01/24 09:07 [email or web address] Anesthesia Postop Eval I: Fluid Summary Crystalloid volume administer 35 11/01/24 09:07 [email or web address] (ml) Colloids volume administered ( ml) Blood Product volume administered (ml) Total IV fluid infused 35 11/01/24 09:07 [email or web address] Anesthesia Postop Eval I: Summary Notes Anesthesia Complication No 11/01/24 09:07 [email or web address] Anesthesia Complication Comment: Post-operative progress note Anesthesia: Postop Eval II Evaluation Mental status: Awake and Calm Pain Level: 0 nausea: No Vomiting: No Complications Anesthesia Complication: No
== END 2024-11-01 10:15 | disposition home or self-care (01) ==
LOC: EN 07:00 → AC 07:01
PROVIDERS: PCP Family Medicine; Referring Provider Ophthalmology; Visit Provider Internal Medicine Gastroenterology
PROC: 0DJD8ZZ Inspection of Lower Intestinal Tract, Via Natural or Artificial Opening Endoscopic (ICD-10-PCS; CPT 45378; principal; 2024-11-01 07:55)
DX: D12.7 Benign neoplasm of rectosigmoid junction (principal); K62.5 Hemorrhage of anus and rectum; K21.9 Gastro-esophageal reflux disease without esophagitis; E03.9 Hypothyroidism, unspecified; R13.19 Other dysphagia; Z79.890 Hormone replacement therapy; Z79.899 Other long term (current) drug therapy; Z86.0101 Personal history of adenomatous and serrated colon polyps; Z87.891 Personal history of nicotine dependence
CPT/HCPCS: 45338; 88305; A4216; J2405